=== PATIENT | female | born 1970 | race American Indian/Alaskan Native ===

== ENCOUNTER 2020-03-18 12:49 | Emergency (ER) | payer BC ==
[2020-03-18 13:14] VITALS: BP 112/64; PULSE 72
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
--- NOTE | 2020-03-18 13:51 | CR ---
Knee 3V Lt CLINICAL HISTORY: Fall FINDINGS: No acute fracture or dislocation is noted. There are no osseous lesions. There is minimal patellar spurring. Impression: No fracture
== END 2020-03-18 13:48 | disposition home or self-care (01) ==
LOC: JP.ED 12:49
DX: S70.02XA Contusion of left hip, initial encounter (principal); S80.02XA Contusion of left knee, initial encounter; I10 Essential (primary) hypertension; F41.9 Anxiety disorder, unspecified; F32.9 Major depressive disorder, single episode, unspecified; E11.9 Type 2 diabetes mellitus without complications; E66.9 Obesity, unspecified; Z68.26 Body mass index [BMI] 26.0-26.9, adult; W19.XXXA Unspecified fall, initial encounter
CPT/HCPCS: 73562-26-LT; 73562-LT; 99283

== ENCOUNTER 2021-08-30 05:15 | Inpatient (IN) | payer BC ==
[2021-08-30] MEDS ORDERED: Sodium Chloride 0.9% 10 ML Syringe FLUSH PRN ×2 (05:29→09:24)
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
[2021-08-30 06:17] LABS: CORONAVIRUS COVID-19 NAA POSITIVE (NEGATIVE)
[2021-08-30] MEDS ORDERED: Dexamethasone 4 MG/ML SDV IVPUSH ONE (06:41)
[2021-08-30] MEDS ORDERED: REMDESIVIR 200 MG in Sodium Chloride 0.9% 250 ML IV ONE ×2 (06:41→08:00)
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
[2021-08-30] MEDS ORDERED: Ondansetron 4 MG/2 ML SDV IV PRN (09:24)
[2021-08-30] MEDS ORDERED: Polyethylene Glycol 3350 Powder 17 GM Packet PO PRN (09:24)
[2021-08-30] MEDS: DULoxetine 30 MG Cap PO SCH (10:13)
[2021-08-30] MEDS: Celecoxib 200 MG Cap PO SCH ×2 (10:22→20:56)
[2021-08-30] MEDS: Enoxaparin 40 MG/0.4 ML Syringe SUBCUT SCH (10:22)
[2021-08-30] MEDS: Dexamethasone 4 MG/ML SDV IVPUSH SCH (10:22)
[2021-08-30] MEDS: Acetaminophen 325 MG Tab PO PRN (18:16)
[2021-08-30] MEDS: Acetaminophen/HYDROcodone 325-10 MG Tab PO PRN (20:59)
[2021-08-30] MEDS: Codeine/guaiFENesin 10-100 MG/5 ML Syrup 5 ML Cup PO PRN (21:01)
[2021-08-30] MEDS ORDERED: DULoxetine 30 MG Cap PO ONE (21:03)
[2021-08-31] MEDS: Acetaminophen/HYDROcodone 325-10 MG Tab PO PRN ×3 (07:44→23:36)
[2021-08-31] MEDS: Benzonatate 100 MG Cap PO PRN ×2 (07:44→23:38)
[2021-08-31] MEDS: Codeine/guaiFENesin 10-100 MG/5 ML Syrup 5 ML Cup PO PRN ×3 (07:44→18:20)
[2021-08-31] MEDS: Celecoxib 200 MG Cap PO SCH ×2 (08:01→20:20)
[2021-08-31] MEDS: Enoxaparin 40 MG/0.4 ML Syringe SUBCUT SCH (08:01)
[2021-08-31] MEDS: Dexamethasone 4 MG/ML SDV IVPUSH SCH (08:01)
[2021-08-31] MEDS: DULoxetine 30 MG Cap PO SCH (10:17)
[2021-08-31] MEDS: REMDESIVIR 100 MG in Sodium Chloride 0.9% 100 ML IV SCH (10:17)
--- NOTE | 2021-08-31 13:57 | PCM.PN ---
- General Info Date of Service: 08/31/21 Subjective Update: Ms. Porter has remained stable since admission yesterday. She continues to require supplemental oxygen at 8 L/min via high flow nasal cannula. There is been no significant worsening of respiratory status since admission. Vital signs have been stable and she has remained afebrile. She does report symptoms of shortness of breath with fairly minimal exertion. Functional Status: Reports: Urinating. Denies: Tolerating Diet, Ambulating - Review of Systems General: Reports: Weakness, Fatigue. Denies: Fever, Chills Pulmonary: Reports: Shortness of Breath, Cough. Denies: Pleuritic Chest Pain, Sputum, Hemoptysis, Wheezing Cardiovascular: Reports: Dyspnea on Exertion. Denies: Chest Pain, Palpitations, Orthopnea, PND, Edema, Lightheadedness Gastrointestinal: Reports: No Symptoms Genitourinary: Reports: No Symptoms - Patient Data Vitals - Most Recent: Last Vital Signs Temp 95.7 F L 08/31/21 11:34 Pulse 77 08/31/21 11:34 Resp 18 08/31/21 11:34 BP 118/68 08/31/21 11:34 Pulse Ox 96 08/31/21 11:34 Weight - Most Recent: 180 lb I&O - Last 24 Hours: Intake & Output 08/30/21 08/31/21 08/31/21 22:59 06:59 14:59 Intake Total 300 500 520 Balance 300 500 520 Lab Results Last 24 Hours: Laboratory Results - last 24 hr 08/31/21 08/31/21 08/31/21 Range/Units 06:01 06:01 06:01 WBC 10.1 (4.5-11.0) K/uL RBC 4.45 (3.30-5.50) M/uL Hgb 12.7 (12.0-15.0) g/dL Hct 38.5 (36.0-48.0) % MCV 87 (80-98) fL MCH 29 (27-31) pg MCHC 33 (32-36) % Plt Count 180 (150-400) K/uL Add Manual Diff Yes Neutrophils % (Manual) 87 H (36-66) % Band Neutrophils % 2 L (5-11) % Lymphocytes % (Manual) 5 L (24-44) % Monocytes % (Manual) 6 (2-6) % D-Dimer, Quantitative 996.03 H (0.0-500.0) ng/mL Sodium 142 (140-148) mmol/L Potassium 4.7 (3.6-5.2) mmol/L Chloride 105 (100-108) mmol/L Carbon Dioxide 30 (21-32) mmol/L Anion Gap 6.8 (5.0-14.0) mmol/L BUN 11 (7-18) mg/dL Creatinine 0.6 (0.6-1.0) mg/dL Est Cr Clr Drug Dosing 106.66 mL/min Estimated GFR (MDRD) > 60 (>60) Glucose 197 H (74-106) mg/dL Calcium 8.2 L (8.5-10.1) mg/dL Total Bilirubin 0.3 (0.2-1.0) mg/dL AST 64 H (15-37) U/L ALT 68 (12-78) U/L Alkaline Phosphatase 133 H (46-116) U/L C-Reactive Protein 5.91 H (0.0-0.3) mg/dL Total Protein 6.5 (6.4-8.2) g/dL Albumin 2.6 L (3.4-5.0) g/dL Globulin 3.9 H (2.3-3.5) g/dL Albumin/Globulin Ratio 0.7 L (1.2-2.2) Med Orders - Current: Current Medications Acetaminophen (Acetaminophen 325 Mg Tab) 650 mg PO Q4H PRN PRN Reason: Pain (Mild 1-3)/fever Last Admin: 08/30/21 18:16 Dose: 650 mg Documented by: Hydrocodone Bitart/Acetaminophen (Acetaminophen/Hydrocodone 325-10 Mg Tab) 1 tab PO TID PRN PRN Reason: Pain Last Admin: 08/31/21 07:44 Dose: 1 tab Documented by: Benzonatate (Benzonatate 100 Mg Cap) 100 mg PO TID PRN PRN Reason: Cough Last Admin: 08/31/21 07:44 Dose: 100 mg Documented by: Celecoxib (Celecoxib 200 Mg Cap) 200 mg PO BID DEBBIE Last Admin: 08/31/21 08:01 Dose: 200 mg Documented by: Dexamethasone (Dexamethasone 4 Mg/Ml Sdv) 4 mg IVPUSH Q24H DEBBIE Last Admin: 08/31/21 08:01 Dose: 4 mg Documented by: Duloxetine HCl (Duloxetine 30 Mg Cap) 30 mg PO DAILY [facility] Last Admin: 08/31/21 10:17 Dose: 30 mg Documented by: Enoxaparin Sodium (Enoxaparin 40 Mg/0.4 Ml Syringe) 40 mg SUBCUT DAILY [facility] Last Admin: 08/31/21 08:01 Dose: 40 mg Documented by: Guaifenesin/Codeine Phosphate (Codeine/Guaifenesin 10-100 Mg/5 Ml Syrup 5 Ml Cup) 10 ml PO Q6H PRN PRN Reason: Cough Last Admin: 08/31/21 13:27 Dose: 10 ml Documented by: Remdesivir 100 mg/ Sodium (Chloride) 100 mls @ 100 mls/hr IV Q24H [facility] Stop: 09/03/21 09:59 Last Admin: 08/31/21 10:17 Dose: 100 mls/hr Documented by: Ondansetron HCl (Ondansetron 4 Mg/2 Ml Sdv) 4 mg IV Q4H PRN PRN Reason: Nausea/Vomiting Polyethylene Glycol (Polyethylene Glycol 3350 Powder 17 Gm Packet) 17 gm PO DAILY PRN PRN Reason: Constipation Sodium Chloride (Sodium Chloride 0.9% 10 Ml Syringe) 10 ml FLUSH ASDIRECTED PRN PRN Reason: Keep Vein Open Discontinued Medications Dexamethasone (Dexamethasone 4 Mg/Ml Sdv) 6 mg IVPUSH ONETIME ONE Stop: 08/30/21 06:42 Last Admin: 08/30/21 07:43 Dose: 6 mg Documented by: Duloxetine HCl (Duloxetine 30 Mg Cap) 60 mg PO ONETIME ONE Stop: 08/30/21 21:04 Last Admin: 08/30/21 21:33 Dose: 60 mg Documented by: Remdesivir 200 mg/ Sodium (Chloride) 250 mls @ 250 mls/hr IV ONETIME ONE Stop: 08/30/21 08:59 Last Admin: 08/30/21 07:43 Dose: 250 mls/hr Documented by: Sodium Chloride (Sodium Chloride 0.9% 10 Ml Syringe) 10 ml FLUSH ASDIRECTED PRN PRN Reason: Keep Vein Open Last Admin: 08/30/21 05:41 Dose: 10 ml Documented by: - Exam Quality Assessment: Supplemental Oxygen, DVT Prophylaxis General: Alert, Oriented, Cooperative, Mild Distress Lungs: Normal Respiratory Effort, Crackles. No: Rales, Rhonchi, Wheezing Cardiovascular: Regular Rate, Regular Rhythm, No Murmurs GI/Abdominal Exam: Soft, Non-Tender, No Organomegaly, No Distention Extremities: Non-Tender, No Pedal Edema - Patient Data Lab Results Last 24 hrs: Laboratory Results - last 24 hr 08/31/21 08/31/21 08/31/21 Range/Units 06:01 06:01 06:01 WBC 10.1 (4.5-11.0) K/uL RBC 4.45 (3.30-5.50) M/uL Hgb 12.7 (12.0-15.0) g/dL Hct 38.5 (36.0-48.0) % MCV 87 (80-98) fL MCH 29 (27-31) pg MCHC 33 (32-36) % Plt Count 180 (150-400) K/uL Add Manual Diff Yes Neutrophils % (Manual) 87 H (36-66) % Band Neutrophils % 2 L (5-11) % Lymphocytes % (Manual) 5 L (24-44) % Monocytes % (Manual) 6 (2-6) % D-Dimer, Quantitative 996.03 H (0.0-500.0) ng/mL Sodium 142 (140-148) mmol/L Potassium 4.7 (3.6-5.2) mmol/L Chloride 105 (100-108) mmol/L Carbon Dioxide 30 (21-32) mmol/L Anion Gap 6.8 (5.0-14.0) mmol/L BUN 11 (7-18) mg/dL Creatinine 0.6 (0.6-1.0) mg/dL Est Cr Clr Drug Dosing 106.66 mL/min Estimated GFR (MDRD) > 60 (>60) Glucose 197 H (74-106) mg/dL Calcium 8.2 L (8.5-10.1) mg/dL Total Bilirubin 0.3 (0.2-1.0) mg/dL AST 64 H (15-37) U/L ALT 68 (12-78) U/L Alkaline Phosphatase 133 H (46-116) U/L C-Reactive Protein 5.91 H (0.0-0.3) mg/dL Total Protein 6.5 (6.4-8.2) g/dL Albumin 2.6 L (3.4-5.0) g/dL Globulin 3.9 H (2.3-3.5) g/dL Albumin/Globulin Ratio 0.7 L (1.2-2.2) Result Diagrams: 08/31/21 06:01 08/31/21 06:01 Sepsis Event Note - Evaluation Sepsis Screening Result: No Definite Risk - Focused Exam Vital Signs: Vital Signs Temp Pulse Resp BP Pulse Ox 08/31/21 11:34 95.7 F L 77 18 118/68 96 08/31/21 07:50 96.5 F L 81 18 135/71 93 L 08/31/21 03:00 97.8 F 91 16 125/69 95 - Problem List Review Problem List Initiated/Reviewed/Updated: Yes - My Orders Last 24 Hours: My Active Orders 08/31/21 09:00 Remdesivir 100 mg Sodium Chloride 0.9% [Normal Saline] 100 ml IV Q24H - Plan Plan:: ASSESSMENT AND PLAN COVID-19 INFECTION WITH BILATERAL PNEUMONIA-stable since admission with no significant decline or change in respiratory status -Limit IV fluids -Prone positioning if possible -Remdesivir 200 mg IV, then 100 mg IV daily for 4 days, today is day 2 of 5 -Dexamethasone 6 mg IV daily, today is day 2 -Supplemental oxygen as needed -Consider high flow humidified oxygen if she requires increased levels of supplemental support ACUTE HYPOXIC RESPIRATORY FAILURE-secondary to COVID-19 infection -Management as above MAINTENANCE ISSUES -DVT prophylaxis; Lovenox 40 mg subcu daily -GI prophylaxis; not indicated -[place] catheter; not indicated -Nutrition; regular diet -Nicotine dependence; not required CODE STATUS-FULL CODE ADMISSION STATUS-patient will be admitted to inpatient status, expect at least a 2 night hospital stay for evaluation and management of problems as outlined above. At the time of this admission I do not reasonably expected evaluation and management of this problem will require more than a 96 hour hospital stay. DISPOSITION-anticipate discharge to home after the hospital stay.
[2021-09-01] MEDS: Codeine/guaiFENesin 10-100 MG/5 ML Syrup 5 ML Cup PO PRN ×3 (00:22→20:30)
[2021-09-01] MEDS: Acetaminophen/HYDROcodone 325-10 MG Tab PO PRN ×3 (07:24→23:24)
[2021-09-01] MEDS: DULoxetine 30 MG Cap PO SCH (10:05)
[2021-09-01] MEDS: Dexamethasone 4 MG/ML SDV IVPUSH SCH (10:05)
[2021-09-01] MEDS: Celecoxib 200 MG Cap PO SCH ×2 (10:05→20:31)
[2021-09-01] MEDS: Enoxaparin 40 MG/0.4 ML Syringe SUBCUT SCH (10:06)
[2021-09-01] MEDS: REMDESIVIR 100 MG in Sodium Chloride 0.9% 100 ML IV SCH (10:26)
--- NOTE | 2021-09-01 12:34 | PCM.PN ---
- General Info Date of Service: 09/01/21 Subjective Update: Ms. Porter stable over the last 24 hours. Level of supplemental oxygen requirement is unchanged since yesterday. She continues to feel short of breath with fairly minimal exertion and also has had ongoing difficulty with cough. Functional Status: Reports: Urinating - Review of Systems General: Reports: Weakness, Fatigue. Denies: Fever, Chills Pulmonary: Reports: Shortness of Breath, Cough. Denies: Pleuritic Chest Pain, Sputum, Hemoptysis, Wheezing Cardiovascular: Reports: Dyspnea on Exertion. Denies: Chest Pain, Palpitations, Orthopnea, PND, Edema, Lightheadedness Gastrointestinal: Reports: No Symptoms Genitourinary: Reports: No Symptoms - Patient Data Vitals - Most Recent: Last Vital Signs Temp 95.9 F L 09/01/21 10:10 Pulse 82 09/01/21 10:10 Resp 18 09/01/21 10:10 BP 132/76 09/01/21 10:10 Pulse Ox 96 09/01/21 10:48 Weight - Most Recent: 191 lb 3.2 oz I&O - Last 24 Hours: Intake & Output 08/31/21 09/01/21 09/01/21 22:59 06:59 14:59 Intake Total 600 240 330 Balance 600 240 330 Med Orders - Current: Current Medications Acetaminophen (Acetaminophen 325 Mg Tab) 650 mg PO Q4H PRN PRN Reason: Pain (Mild 1-3)/fever Last Admin: 08/30/21 18:16 Dose: 650 mg Documented by: Hydrocodone Bitart/Acetaminophen (Acetaminophen/Hydrocodone 325-10 Mg Tab) 1 tab PO TID PRN PRN Reason: Pain Last Admin: 09/01/21 07:24 Dose: 1 tab Documented by: Benzonatate (Benzonatate 100 Mg Cap) 100 mg PO TID PRN PRN Reason: Cough Last Admin: 08/31/21 23:38 Dose: 100 mg Documented by: Celecoxib (Celecoxib 200 Mg Cap) 200 mg PO BID [facility] Last Admin: 09/01/21 10:05 Dose: 200 mg Documented by: Dexamethasone (Dexamethasone 4 Mg/Ml Sdv) 4 mg IVPUSH Q24H [facility] Last Admin: 09/01/21 10:05 Dose: 4 mg Documented by: Duloxetine HCl (Duloxetine 30 Mg Cap) 30 mg PO DAILY [facility] Last Admin: 09/01/21 10:05 Dose: 30 mg Documented by: Enoxaparin Sodium (Enoxaparin 40 Mg/0.4 Ml Syringe) 40 mg SUBCUT DAILY [facility] Last Admin: 09/01/21 10:06 Dose: 40 mg Documented by: Guaifenesin/Codeine Phosphate (Codeine/Guaifenesin 10-100 Mg/5 Ml Syrup 5 Ml Cup) 10 ml PO Q6H PRN PRN Reason: Cough Last Admin: 09/01/21 07:23 Dose: 10 ml Documented by: Remdesivir 100 mg/ Sodium (Chloride) 100 mls @ 100 mls/hr IV Q24H [facility] Stop: 09/03/21 09:59 Last Admin: 09/01/21 10:26 Dose: 100 mls/hr Documented by: Ondansetron HCl (Ondansetron 4 Mg/2 Ml Sdv) 4 mg IV Q4H PRN PRN Reason: Nausea/Vomiting Polyethylene Glycol (Polyethylene Glycol 3350 Powder 17 Gm Packet) 17 gm PO DAILY PRN PRN Reason: Constipation Sodium Chloride (Sodium Chloride 0.9% 10 Ml Syringe) 10 ml FLUSH ASDIRECTED PRN PRN Reason: Keep Vein Open Discontinued Medications Dexamethasone (Dexamethasone 4 Mg/Ml Sdv) 6 mg IVPUSH ONETIME ONE Stop: 08/30/21 06:42 Last Admin: 08/30/21 07:43 Dose: 6 mg Documented by: Duloxetine HCl (Duloxetine 30 Mg Cap) 60 mg PO ONETIME ONE Stop: 08/30/21 21:04 Last Admin: 08/30/21 21:33 Dose: 60 mg Documented by: Remdesivir 200 mg/ Sodium (Chloride) 250 mls @ 250 mls/hr IV ONETIME ONE Stop: 08/30/21 08:59 Last Admin: 08/30/21 07:43 Dose: 250 mls/hr Documented by: Sodium Chloride (Sodium Chloride 0.9% 10 Ml Syringe) 10 ml FLUSH ASDIRECTED PRN PRN Reason: Keep Vein Open Last Admin: 08/30/21 05:41 Dose: 10 ml Documented by: - Exam Quality Assessment: Supplemental Oxygen, DVT Prophylaxis General: Alert, Oriented, Cooperative, Moderate Distress Lungs: Crackles. No: Rales, Rhonchi, Wheezing Cardiovascular: Regular Rate, Regular Rhythm, No Murmurs GI/Abdominal Exam: Soft, Non-Tender, No Organomegaly, No Distention Extremities: Non-Tender, No Pedal Edema - Patient Data Result Diagrams: 08/31/21 06:01 08/31/21 06:01 Sepsis Event Note - Evaluation Sepsis Screening Result: No Definite Risk - Focused Exam Vital Signs: Vital Signs Temp Temp Pulse Resp BP Pulse Ox Pulse Ox 09/01/21 10:48 96 09/01/21 10:10 95.9 F L 82 18 132/76 94 L 09/01/21 07:31 96 09/01/21 07:26 96.4 F L 74 18 127/71 96 09/01/21 04:06 99 09/01/21 03:00 97.4 F 68 16 142/79 H 98 - Problem List Review Problem List Initiated/Reviewed/Updated: Yes - My Orders Last 24 Hours: My Active Orders 09/02/21 05:00 CBC WITH AUTO DIFF [HEME] Timed COMPREHENSIVE METABOLIC PN,CMP [CHEM] Timed 09/02/21 05:11 CRP [C-REACTIVE PROTEIN] [CHEM] AM D Dimer [D-DIMER QUANTITATIVE] [COAG] AM - Plan Plan:: ASSESSMENT AND PLAN COVID-19 INFECTION WITH BILATERAL PNEUMONIA-stable since admission with no significant decline or change in respiratory status -Limit IV fluids -Prone positioning if possible -Remdesivir 200 mg IV, then 100 mg IV daily for 4 days, today is day 3 of 5 -Dexamethasone 6 mg IV daily, today is day 3 -Supplemental oxygen as needed -Consider high flow humidified oxygen if she requires increased levels of supplemental support ACUTE HYPOXIC RESPIRATORY FAILURE-secondary to COVID-19 infection -Management as above MAINTENANCE ISSUES -DVT prophylaxis; Lovenox 40 mg subcu daily -GI prophylaxis; not indicated -[place] catheter; not indicated -Nutrition; regular diet -Nicotine dependence; not required CODE STATUS-FULL CODE ADMISSION STATUS-patient will be admitted to inpatient status, expect at least a 2 night hospital stay for evaluation and management of problems as outlined above. At the time of this admission I do not reasonably expected evaluation and management of this problem will require more than a 96 hour hospital stay. DISPOSITION-anticipate discharge to home after the hospital stay.
[2021-09-02] MEDS: Codeine/guaiFENesin 10-100 MG/5 ML Syrup 5 ML Cup PO PRN ×3 (05:47→21:13)
[2021-09-02] MEDS: Acetaminophen 325 MG Tab PO PRN (05:51)
[2021-09-02] MEDS: Benzonatate 100 MG Cap PO PRN ×3 (05:51→19:28)
[2021-09-02] MEDS: Acetaminophen/HYDROcodone 325-10 MG Tab PO PRN ×5 (07:42→23:20)
[2021-09-02] MEDS: Enoxaparin 40 MG/0.4 ML Syringe SUBCUT SCH (08:39)
[2021-09-02] MEDS: REMDESIVIR 100 MG in Sodium Chloride 0.9% 100 ML IV SCH (08:39)
[2021-09-02] MEDS: Celecoxib 200 MG Cap PO SCH ×2 (08:39→21:13)
[2021-09-02] MEDS: Dexamethasone 4 MG/ML SDV IVPUSH SCH (08:39)
[2021-09-02] MEDS: DULoxetine 30 MG Cap PO SCH (08:39)
--- NOTE | 2021-09-02 11:16 | PCM.PN ---
- General Info Date of Service: 09/02/21 Subjective Update: Ms. Porter continues to require supplemental oxygen at 8 L/min via high flow nasal cannula. Continues to experience significant cough and desaturation with activity. She has chronic low back pain and this seems to be worse as she has had to be in bed most of the time. Functional Status: Reports: Urinating. Denies: Tolerating Diet, Ambulating - Review of Systems General: Reports: Weakness, Fatigue. Denies: Fever, Chills Pulmonary: Reports: Shortness of Breath, Cough. Denies: Pleuritic Chest Pain, Sputum, Hemoptysis, Wheezing Cardiovascular: Reports: Dyspnea on Exertion. Denies: Chest Pain, Palpitations, Orthopnea, PND, Edema, Lightheadedness Gastrointestinal: Reports: No Symptoms Genitourinary: Reports: No Symptoms - Patient Data Vitals - Most Recent: Last Vital Signs Temp 95.3 F L 09/02/21 07:33 Pulse 86 09/02/21 07:33 Resp 18 09/02/21 07:33 BP 132/79 09/02/21 07:33 Pulse Ox 96 09/02/21 08:37 Weight - Most Recent: 191 lb 3.2 oz I&O - Last 24 Hours: Intake & Output 09/01/21 09/02/21 09/02/21 22:59 06:59 14:59 Intake Total 860 600 120 Balance 860 600 120 Lab Results Last 24 Hours: Laboratory Results - last 24 hr 09/02/21 09/02/21 09/02/21 Range/Units 04:30 04:30 04:30 WBC 12.3 H (4.5-11.0) K/uL RBC 4.54 (3.30-5.50) M/uL Hgb 13.0 (12.0-15.0) g/dL Hct 39.8 (36.0-48.0) % MCV 88 (80-98) fL MCH 29 (27-31) pg MCHC 33 (32-36) % Plt Count 236 (150-400) K/uL Add Manual Diff Yes Neutrophils % (Manual) 79 H (36-66) % Band Neutrophils % 3 L (5-11) % Lymphocytes % (Manual) 9 L (24-44) % Monocytes % (Manual) 8 H (2-6) % Eosinophils % (Manual) 1 L (2-4) % D-Dimer, Quantitative 659.05 H (0.0-500.0) ng/mL Sodium 143 (140-148) mmol/L Potassium 4.4 (3.6-5.2) mmol/L Chloride 103 (100-108) mmol/L Carbon Dioxide 32 (21-32) mmol/L Anion Gap 7.8 (5.0-14.0) mmol/L BUN 14 (7-18) mg/dL Creatinine 0.7 (0.6-1.0) mg/dL Est Cr Clr Drug Dosing 91.42 mL/min Estimated GFR (MDRD) > 60 (>60) Glucose 139 H (74-106) mg/dL Calcium 8.2 L (8.5-10.1) mg/dL Total Bilirubin 0.3 (0.2-1.0) mg/dL AST 67 H (15-37) U/L ALT 83 H (12-78) U/L Alkaline Phosphatase 132 H (46-116) U/L C-Reactive Protein (0.0-0.3) mg/dL Total Protein 6.5 (6.4-8.2) g/dL Albumin 2.7 L (3.4-5.0) g/dL Globulin 3.8 H (2.3-3.5) g/dL Albumin/Globulin Ratio 0.7 L (1.2-2.2) 09/02/21 Range/Units 04:30 WBC (4.5-11.0) K/uL RBC (3.30-5.50) M/uL Hgb (12.0-15.0) g/dL Hct (36.0-48.0) % MCV (80-98) fL MCH (27-31) pg MCHC (32-36) % Plt Count (150-400) K/uL Add Manual Diff Neutrophils % (Manual) (36-66) % Band Neutrophils % (5-11) % Lymphocytes % (Manual) (24-44) % Monocytes % (Manual) (2-6) % Eosinophils % (Manual) (2-4) % D-Dimer, Quantitative (0.0-500.0) ng/mL Sodium (140-148) mmol/L Potassium (3.6-5.2) mmol/L Chloride (100-108) mmol/L Carbon Dioxide (21-32) mmol/L Anion Gap (5.0-14.0) mmol/L BUN (7-18) mg/dL Creatinine (0.6-1.0) mg/dL Est Cr Clr Drug Dosing mL/min Estimated GFR (MDRD) (>60) Glucose (74-106) mg/dL Calcium (8.5-10.1) mg/dL Total Bilirubin (0.2-1.0) mg/dL AST (15-37) U/L ALT (12-78) U/L Alkaline Phosphatase (46-116) U/L C-Reactive Protein 0.64 H (0.0-0.3) mg/dL Total Protein (6.4-8.2) g/dL Albumin (3.4-5.0) g/dL Globulin (2.3-3.5) g/dL Albumin/Globulin Ratio (1.2-2.2) Med Orders - Current: Current Medications Acetaminophen (Acetaminophen 325 Mg Tab) 650 mg PO Q4H PRN PRN Reason: Pain (Mild 1-3)/fever Last Admin: 09/02/21 05:51 Dose: 650 mg Documented by: Hydrocodone Bitart/Acetaminophen (Acetaminophen/Hydrocodone 325-10 Mg Tab) 1 tab PO Q4H PRN PRN Reason: Pain Benzonatate (Benzonatate 100 Mg Cap) 100 mg PO TID PRN PRN Reason: Cough Last Admin: 09/02/21 05:51 Dose: 100 mg Documented by: Celecoxib (Celecoxib 200 Mg Cap) 200 mg PO BID [facility] Last Admin: 09/02/21 08:39 Dose: 200 mg Documented by: Dexamethasone (Dexamethasone 4 Mg/Ml Sdv) 4 mg IVPUSH Q24H [facility] Last Admin: 09/02/21 08:39 Dose: 4 mg Documented by: Duloxetine HCl (Duloxetine 30 Mg Cap) 30 mg PO DAILY [facility] Last Admin: 09/02/21 08:39 Dose: 30 mg Documented by: Enoxaparin Sodium (Enoxaparin 40 Mg/0.4 Ml Syringe) 40 mg SUBCUT DAILY [facility] Last Admin: 09/02/21 08:39 Dose: 40 mg Documented by: Guaifenesin/Codeine Phosphate (Codeine/Guaifenesin 10-100 Mg/5 Ml Syrup 5 Ml Cup) 10 ml PO Q6H PRN PRN Reason: Cough Last Admin: 09/02/21 05:47 Dose: 10 ml Documented by: Remdesivir 100 mg/ Sodium (Chloride) 100 mls @ 100 mls/hr IV Q24H [facility] Stop: 09/03/21 09:59 Last Admin: 09/02/21 08:39 Dose: 100 mls/hr Documented by: Ondansetron HCl (Ondansetron 4 Mg/2 Ml Sdv) 4 mg IV Q4H PRN PRN Reason: Nausea/Vomiting Carisoprodol 350mg (Tab (Ptom)) 1 each PO BEDTIME PRN PRN Reason: MUSCLE SPASM Polyethylene Glycol (Polyethylene Glycol 3350 Powder 17 Gm Packet) 17 gm PO DAILY PRN PRN Reason: Constipation Sodium Chloride (Sodium Chloride 0.9% 10 Ml Syringe) 10 ml FLUSH ASDIRECTED PRN PRN Reason: Keep Vein Open Discontinued Medications Hydrocodone Bitart/Acetaminophen (Acetaminophen/Hydrocodone 325-10 Mg Tab) 1 tab PO TID PRN PRN Reason: Pain Last Admin: 09/02/21 07:42 Dose: 1 tab Documented by: Dexamethasone (Dexamethasone 4 Mg/Ml Sdv) 6 mg IVPUSH ONETIME ONE Stop: 08/30/21 06:42 Last Admin: 08/30/21 07:43 Dose: 6 mg Documented by: Duloxetine HCl (Duloxetine 30 Mg Cap) 60 mg PO ONETIME ONE Stop: 08/30/21 21:04 Last Admin: 08/30/21 21:33 Dose: 60 mg Documented by: Remdesivir 200 mg/ Sodium (Chloride) 250 mls @ 250 mls/hr IV ONETIME ONE Stop: 08/30/21 08:59 Last Admin: 08/30/21 07:43 Dose: 250 mls/hr Documented by: Sodium Chloride (Sodium Chloride 0.9% 10 Ml Syringe) 10 ml FLUSH ASDIRECTED PRN PRN Reason: Keep Vein Open Last Admin: 08/30/21 05:41 Dose: 10 ml Documented by: - Exam Quality Assessment: Supplemental Oxygen, DVT Prophylaxis General: Alert, Oriented, Cooperative, Moderate Distress Lungs: Crackles. No: Rales, Rhonchi, Wheezing Cardiovascular: Regular Rate, Regular Rhythm, No Murmurs GI/Abdominal Exam: Soft, Non-Tender, No Organomegaly, No Distention Extremities: Non-Tender, No Pedal Edema - Patient Data Lab Results Last 24 hrs: Laboratory Results - last 24 hr 09/02/21 09/02/21 09/02/21 Range/Units 04:30 04:30 04:30 WBC 12.3 H (4.5-11.0) K/uL RBC 4.54 (3.30-5.50) M/uL Hgb 13.0 (12.0-15.0) g/dL Hct 39.8 (36.0-48.0) % MCV 88 (80-98) fL MCH 29 (27-31) pg MCHC 33 (32-36) % Plt Count 236 (150-400) K/uL Add Manual Diff Yes Neutrophils % (Manual) 79 H (36-66) % Band Neutrophils % 3 L (5-11) % Lymphocytes % (Manual) 9 L (24-44) % Monocytes % (Manual) 8 H (2-6) % Eosinophils % (Manual) 1 L (2-4) % D-Dimer, Quantitative 659.05 H (0.0-500.0) ng/mL Sodium 143 (140-148) mmol/L Potassium 4.4 (3.6-5.2) mmol/L Chloride 103 (100-108) mmol/L Carbon Dioxide 32 (21-32) mmol/L Anion Gap 7.8 (5.0-14.0) mmol/L BUN 14 (7-18) mg/dL Creatinine 0.7 (0.6-1.0) mg/dL Est Cr Clr Drug Dosing 91.42 mL/min Estimated GFR (MDRD) > 60 (>60) Glucose 139 H (74-106) mg/dL Calcium 8.2 L (8.5-10.1) mg/dL Total Bilirubin 0.3 (0.2-1.0) mg/dL AST 67 H (15-37) U/L ALT 83 H (12-78) U/L Alkaline Phosphatase 132 H (46-116) U/L C-Reactive Protein (0.0-0.3) mg/dL Total Protein 6.5 (6.4-8.2) g/dL Albumin 2.7 L (3.4-5.0) g/dL Globulin 3.8 H (2.3-3.5) g/dL Albumin/Globulin Ratio 0.7 L (1.2-2.2) 09/02/21 Range/Units 04:30 WBC (4.5-11.0) K/uL RBC (3.30-5.50) M/uL Hgb (12.0-15.0) g/dL Hct (36.0-48.0) % MCV (80-98) fL MCH (27-31) pg MCHC (32-36) % Plt Count (150-400) K/uL Add Manual Diff Neutrophils % (Manual) (36-66) % Band Neutrophils % (5-11) % Lymphocytes % (Manual) (24-44) % Monocytes % (Manual) (2-6) % Eosinophils % (Manual) (2-4) % D-Dimer, Quantitative (0.0-500.0) ng/mL Sodium (140-148) mmol/L Potassium (3.6-5.2) mmol/L Chloride (100-108) mmol/L Carbon Dioxide (21-32) mmol/L Anion Gap (5.0-14.0) mmol/L BUN (7-18) mg/dL Creatinine (0.6-1.0) mg/dL Est Cr Clr Drug Dosing mL/min Estimated GFR (MDRD) (>60) Glucose (74-106) mg/dL Calcium (8.5-10.1) mg/dL Total Bilirubin (0.2-1.0) mg/dL AST (15-37) U/L ALT (12-78) U/L Alkaline Phosphatase (46-116) U/L C-Reactive Protein 0.64 H (0.0-0.3) mg/dL Total Protein (6.4-8.2) g/dL Albumin (3.4-5.0) g/dL Globulin (2.3-3.5) g/dL Albumin/Globulin Ratio (1.2-2.2) Result Diagrams: 09/02/21 04:30 09/02/21 04:30 Sepsis Event Note - Evaluation Sepsis Screening Result: Sepsis Risk - Focused Exam Vital Signs: Vital Signs Temp Pulse Resp BP Pulse Ox Pulse Ox 09/02/21 08:37 96 09/02/21 07:33 95.3 F L 86 18 132/79 90 L 09/02/21 06:46 94 L 09/02/21 05:10 95 09/02/21 03:00 97.7 F 72 16 157/87 H 97 09/01/21 23:25 96.8 F L 69 20 156/81 H 94 L - Problem List Review Problem List Initiated/Reviewed/Updated: Yes - My Orders Last 24 Hours: My Active Orders 09/01/21 20:00 Patient's Own Medication [Ptom] 1 each PO BEDTIME PRN 09/02/21 11:13 Acetaminophen/HYDROcodone [[place] 325-10 MG] 1 tab PO Q4H PRN - Plan Plan:: ASSESSMENT AND PLAN COVID-19 INFECTION WITH BILATERAL PNEUMONIA-stable since admission with no significant decline or change in respiratory status. Continues to require 8 L /min via high flow nasal cannula -Limit IV fluids -Prone positioning if possible -Remdesivir 200 mg IV, then 100 mg IV daily for 4 days, today is day 4 of 5 -Dexamethasone 6 mg IV daily, today is day 4 -Supplemental oxygen as needed -Consider high flow humidified oxygen if she requires increased levels of supplemental support ACUTE HYPOXIC RESPIRATORY FAILURE-secondary to COVID-19 infection -Management as above CHRONIC LOW BACK PAIN-symptoms increased since admission, likely secondary to immobility related to hypoxia -Increase hydrocodone to every 4 hours as needed MAINTENANCE ISSUES -DVT prophylaxis; Lovenox 40 mg subcu daily -GI prophylaxis; not indicated -[place] catheter; not indicated -Nutrition; regular diet -Nicotine dependence; not required CODE STATUS-FULL CODE ADMISSION STATUS-patient will be admitted to inpatient status, expect at least a 2 night hospital stay for evaluation and management of problems as outlined above. At the time of this admission I do not reasonably expected evaluation and management of this problem will require more than a 96 hour hospital stay. DISPOSITION-anticipate discharge to home after the hospital stay.
[2021-09-02] MEDS: Trolamine Salicylate/Aloe Vera 10% Crm 85 GM Tube TOP PRN ×2 (15:54→19:38)
[2021-09-02] MEDS: CARISOPRODOL 350 MG PO PRN (21:13)
[2021-09-03] MEDS: Codeine/guaiFENesin 10-100 MG/5 ML Syrup 5 ML Cup PO PRN ×4 (02:49→22:05)
[2021-09-03] MEDS: Acetaminophen/HYDROcodone 325-10 MG Tab PO PRN ×6 (03:50→23:40)
[2021-09-03] MEDS: Benzonatate 100 MG Cap PO PRN ×2 (07:27→23:41)
[2021-09-03] MEDS: Enoxaparin 40 MG/0.4 ML Syringe SUBCUT SCH (08:12)
[2021-09-03] MEDS: REMDESIVIR 100 MG in Sodium Chloride 0.9% 100 ML IV SCH (08:12)
[2021-09-03] MEDS: DULoxetine 30 MG Cap PO SCH (08:13)
[2021-09-03] MEDS: Celecoxib 200 MG Cap PO SCH ×2 (08:13→22:05)
[2021-09-03] MEDS: Dexamethasone 4 MG/ML SDV IVPUSH SCH (08:13)
--- NOTE | 2021-09-03 14:05 | PCM.PN ---
- General Info Date of Service: 09/03/21 Subjective Update: Ms. Porter has shown modest improvement over the last 24 hours, now on 7 L/min via high flow nasal cannula. She was able to get in for shower this morning but did experience significant shortness of breath and required relatively long period of time to recover. Functional Status: Reports: Ambulating, Urinating. Denies: Tolerating Diet - Review of Systems General: Reports: Weakness, Fatigue. Denies: Fever, Chills Pulmonary: Reports: Shortness of Breath, Cough. Denies: Pleuritic Chest Pain, Sputum, Hemoptysis, Wheezing Cardiovascular: Reports: Dyspnea on Exertion. Denies: Chest Pain, Palpitations, Orthopnea, PND, Edema, Lightheadedness Gastrointestinal: Reports: No Symptoms Genitourinary: Reports: No Symptoms - Patient Data Vitals - Most Recent: Last Vital Signs Temp 95.8 F L 09/03/21 10:51 Pulse 78 09/03/21 10:51 Resp 20 09/03/21 10:51 BP 137/76 09/03/21 10:51 Pulse Ox 95 09/03/21 10:51 Weight - Most Recent: 191 lb 3.2 oz I&O - Last 24 Hours: Intake & Output 09/02/21 09/03/21 09/03/21 22:59 06:59 14:59 Intake Total 836 211 1414 Balance 671 125 2381 Med Orders - Current: Current Medications Acetaminophen (Acetaminophen 325 Mg Tab) 650 mg PO Q4H PRN PRN Reason: Pain (Mild 1-3)/fever Last Admin: 09/02/21 05:51 Dose: 650 mg Documented by: Hydrocodone Bitart/Acetaminophen (Acetaminophen/Hydrocodone 325-10 Mg Tab) 1 tab PO Q4H PRN PRN Reason: Pain Last Admin: 09/03/21 11:29 Dose: 1 tab Documented by: Benzonatate (Benzonatate 100 Mg Cap) 100 mg PO TID PRN PRN Reason: Cough Last Admin: 09/03/21 07:27 Dose: 100 mg Documented by: Celecoxib (Celecoxib 200 Mg Cap) 200 mg PO BID [facility] Last Admin: 09/03/21 08:13 Dose: 200 mg Documented by: Dexamethasone (Dexamethasone 4 Mg/Ml Sdv) 4 mg IVPUSH Q24H [facility] Last Admin: 09/03/21 08:13 Dose: 4 mg Documented by: Duloxetine HCl (Duloxetine 30 Mg Cap) 30 mg PO DAILY [facility] Last Admin: 09/03/21 08:13 Dose: 30 mg Documented by: Enoxaparin Sodium (Enoxaparin 40 Mg/0.4 Ml Syringe) 40 mg SUBCUT DAILY [facility] Last Admin: 09/03/21 08:12 Dose: 40 mg Documented by: Guaifenesin/Codeine Phosphate (Codeine/Guaifenesin 10-100 Mg/5 Ml Syrup 5 Ml Cup) 10 ml PO Q6H PRN PRN Reason: Cough Last Admin: 09/03/21 09:12 Dose: 10 ml Documented by: Ondansetron HCl (Ondansetron 4 Mg/2 Ml Sdv) 4 mg IV Q4H PRN PRN Reason: Nausea/Vomiting Carisoprodol 350mg (Tab (Ptom)) 1 each PO BEDTIME PRN PRN Reason: MUSCLE SPASM Last Admin: 09/02/21 21:13 Dose: 1 each Documented by: Polyethylene Glycol (Polyethylene Glycol 3350 Powder 17 Gm Packet) 17 gm PO DA [facility] PRN PRN Reason: Constipation Sodium Chloride (Sodium Chloride 0.9% 10 Ml Syringe) 10 ml FLUSH ASDIRECTED PRN PRN Reason: Keep Vein Open Trolamine Salicylate (Trolamine Salicylate/Aloe Vera 10% Crm 85 Gm Tube) 0 gm TOP Q1H PRN PRN Reason: Pain Last Admin: 09/02/21 19:38 Dose: 1 applic Documented by: Discontinued Medications Hydrocodone Bitart/Acetaminophen (Acetaminophen/Hydrocodone 325-10 Mg Tab) 1 tab PO TID PRN PRN Reason: Pain Last Admin: 09/02/21 07:42 Dose: 1 tab Documented by: Dexamethasone (Dexamethasone 4 Mg/Ml Sdv) 6 mg IVPUSH ONETIME ONE Stop: 08/30/21 06:42 Last Admin: 08/30/21 07:43 Dose: 6 mg Documented by: Duloxetine HCl (Duloxetine 30 Mg Cap) 60 mg PO ONETIME ONE Stop: 08/30/21 21:04 Last Admin: 08/30/21 21:33 Dose: 60 mg Documented by: Remdesivir 200 mg/ Sodium (Chloride) 250 mls @ 250 mls/hr IV ONETIME ONE Stop: 08/30/21 08:59 Last Admin: 08/30/21 07:43 Dose: 250 mls/hr Documented by: Remdesivir 100 mg/ Sodium (Chloride) 100 mls @ 100 mls/hr IV Q24H [facility] Stop: 09/03/21 09:59 Last Admin: 09/03/21 08:12 Dose: 100 mls/hr Documented by: Sodium Chloride (Sodium Chloride 0.9% 10 Ml Syringe) 10 ml FLUSH ASDIRECTED PRN PRN Reason: Keep Vein Open Last Admin: 08/30/21 05:41 Dose: 10 ml Documented by: - Exam Quality Assessment: Supplemental Oxygen, DVT Prophylaxis General: Alert, Oriented, Cooperative, Moderate Distress Lungs: Crackles. No: Rales, Rhonchi, Wheezing Cardiovascular: Regular Rate, Regular Rhythm, No Murmurs GI/Abdominal Exam: Soft, Non-Tender, No Organomegaly, No Distention Extremities: Non-Tender, No Pedal Edema - Patient Data Result Diagrams: 09/02/21 04:30 09/02/21 04:30 Sepsis Event Note - Evaluation Sepsis Screening Result: Sepsis Risk - Focused Exam Vital Signs: Vital Signs Temp Pulse Resp BP Pulse Ox Pulse Ox 09/03/21 10:51 95.8 F L 78 20 137/76 95 09/03/21 08:27 93 L 09/03/21 07:29 95.4 F L 89 20 111/71 90 L 09/03/21 05:00 95 09/03/21 02:46 96.8 F L 72 20 116/69 92 L - Problem List Review Problem List Initiated/Reviewed/Updated: Yes - My Orders Last 24 Hours: My Active Orders 09/02/21 15:23 Trolamine Salicylate/Aloe Vera [Aspercreme 10%] See Dose Instructions TOP Q1H PRN 09/04/21 05:00 CBC WITH AUTO DIFF [HEME] Timed COMPREHENSIVE METABOLIC PN,CMP [CHEM] Timed 09/04/21 05:11 CRP [C-REACTIVE PROTEIN] [CHEM] AM D Dimer [D-DIMER QUANTITATIVE] [COAG] AM - Plan Plan:: ASSESSMENT AND PLAN COVID-19 INFECTION WITH BILATERAL PNEUMONIA-stable since admission with no significant decline or change in respiratory status. Modest improvement since yesterday, now on 7 L/min via high flow nasal cannula. -Limit IV fluids -Prone positioning if possible -Remdesivir 200 mg IV, then 100 mg IV daily for 4 days, today is day 5 of 5 -Dexamethasone 6 mg IV daily, today is day 5 -Supplemental oxygen as needed -Consider high flow humidified oxygen if she requires increased levels of supplemental support ACUTE HYPOXIC RESPIRATORY FAILURE-secondary to COVID-19 infection -Management as above CHRONIC LOW BACK PAIN-symptoms increased since admission, likely secondary to immobility related to hypoxia -Increase hydrocodone to every 4 hours as needed MAINTENANCE ISSUES -DVT prophylaxis; Lovenox 40 mg subcu daily -GI prophylaxis; not indicated -[place] catheter; not indicated -Nutrition; regular diet -Nicotine dependence; not required CODE STATUS-FULL CODE ADMISSION STATUS-patient will be admitted to inpatient status, expect at least a 2 night hospital stay for evaluation and management of problems as outlined above. At the time of this admission I do not reasonably expected evaluation and management of this problem will require more than a 96 hour hospital stay. DISPOSITION-anticipate discharge to home after the hospital stay.
[2021-09-03] MEDS: Trolamine Salicylate/Aloe Vera 10% Crm 85 GM Tube TOP PRN (18:05)
[2021-09-03] MEDS: CARISOPRODOL 350 MG PO PRN (22:05)
[2021-09-04] MEDS: Codeine/guaiFENesin 10-100 MG/5 ML Syrup 5 ML Cup PO PRN ×4 (03:19→23:46)
[2021-09-04] MEDS: Acetaminophen/HYDROcodone 325-10 MG Tab PO PRN ×6 (03:19→23:45)
[2021-09-04] MEDS: DULoxetine 30 MG Cap PO SCH (09:52)
[2021-09-04] MEDS: Celecoxib 200 MG Cap PO SCH ×3 (09:52→20:10)
[2021-09-04] MEDS: Enoxaparin 40 MG/0.4 ML Syringe SUBCUT SCH ×2 (09:53→10:04)
[2021-09-04] MEDS: Dexamethasone 4 MG/ML SDV IVPUSH SCH (09:53)
--- NOTE | 2021-09-04 14:48 | PCM.PN ---
- General Info Date of Service: 09/04/21 Subjective Update: No acute events overnight. Still requiring about 6 L of supplemental oxygen. Symptomatically she feels slightly better today with a little less shortness of breath. She does have an intermittent cough with some sputum production. No fevers. No chest pain. Appetite slowly getting better. She is able to get to the bathroom and back with mild to moderate dyspnea. Functional Status: Reports: Pain Controlled - Review of Systems General: Reports: Weakness Pulmonary: Reports: Shortness of Breath - Patient Data Vitals - Most Recent: Last Vital Signs Temp 36.3 C 09/04/21 14:44 Pulse 91 09/04/21 14:44 Resp 18 09/04/21 14:44 BP 123/70 09/04/21 14:44 Pulse Ox 93 L 09/04/21 14:44 Weight - Most Recent: 86.727 kg I&O - Last 24 Hours: Intake & Output 09/03/21 09/04/21 09/04/21 22:59 06:59 14:59 Intake Total 1096 296 500 Balance 1096 296 500 Lab Results Last 24 Hours: Laboratory Results - last 24 hr 09/04/21 09/04/21 09/04/21 Range/Units 04:40 04:40 04:40 WBC 13.0 H (4.5-11.0) K/uL RBC 4.56 (3.30-5.50) M/uL Hgb 13.0 (12.0-15.0) g/dL Hct 39.9 (36.0-48.0) % MCV 88 (80-98) fL MCH 29 (27-31) pg MCHC 33 (32-36) % Plt Count 239 (150-400) K/uL Add Manual Diff Yes Neutrophils % (Manual) 75 H (36-66) % Band Neutrophils % 1 L (5-11) % Lymphocytes % (Manual) 18 L (24-44) % Monocytes % (Manual) 6 (2-6) % Polychromasia D-Dimer, Quantitative 427.76 (0.0-500.0) ng/mL Sodium 141 (140-148) mmol/L Potassium 4.0 (3.6-5.2) mmol/L Chloride 104 (100-108) mmol/L Carbon Dioxide 31 (21-32) mmol/L Anion Gap 5.6 (5.0-14.0) mmol/L BUN 11 (7-18) mg/dL Creatinine 0.6 (0.6-1.0) mg/dL Est Cr Clr Drug Dosing 106.66 mL/min Estimated GFR (MDRD) > 60 (>60) Glucose 127 H (74-106) mg/dL Calcium 8.3 L (8.5-10.1) mg/dL Total Bilirubin 0.4 (0.2-1.0) mg/dL AST 36 (15-37) U/L ALT 62 (12-78) U/L Alkaline Phosphatase 125 H (46-116) U/L C-Reactive Protein (0.0-0.3) mg/dL Total Protein 6.4 (6.4-8.2) g/dL Albumin 2.7 L (3.4-5.0) g/dL Globulin 3.7 H (2.3-3.5) g/dL Albumin/Globulin Ratio 0.7 L (1.2-2.2) 09/04/21 Range/Units 04:40 WBC (4.5-11.0) K/uL RBC (3.30-5.50) M/uL Hgb (12.0-15.0) g/dL Hct (36.0-48.0) % MCV (80-98) fL MCH (27-31) pg MCHC (32-36) % Plt Count (150-400) K/uL Add Manual Diff Neutrophils % (Manual) (36-66) % Band Neutrophils % (5-11) % Lymphocytes % (Manual) (24-44) % Monocytes % (Manual) (2-6) % Polychromasia D-Dimer, Quantitative (0.0-500.0) ng/mL Sodium (140-148) mmol/L Potassium (3.6-5.2) mmol/L Chloride (100-108) mmol/L Carbon Dioxide (21-32) mmol/L Anion Gap (5.0-14.0) mmol/L BUN (7-18) mg/dL Creatinine (0.6-1.0) mg/dL Est Cr Clr Drug Dosing mL/min Estimated GFR (MDRD) (>60) Glucose (74-106) mg/dL Calcium (8.5-10.1) mg/dL Total Bilirubin (0.2-1.0) mg/dL AST (15-37) U/L ALT (12-78) U/L Alkaline Phosphatase (46-116) U/L C-Reactive Protein 1.77 H (0.0-0.3) mg/dL Total Protein (6.4-8.2) g/dL Albumin (3.4-5.0) g/dL Globulin (2.3-3.5) g/dL Albumin/Globulin Ratio (1.2-2.2) Med Orders - Current: Current Medications Acetaminophen (Acetaminophen 325 Mg Tab) 650 mg PO Q4H PRN PRN Reason: Pain (Mild 1-3)/fever Last Admin: 09/02/21 05:51 Dose: 650 mg Documented by: Hydrocodone Bitart/Acetaminophen (Acetaminophen/Hydrocodone 325-10 Mg Tab) 1 tab PO Q4H PRN PRN Reason: Pain Last Admin: 09/04/21 11:34 Dose: 1 tab Documented by: Benzonatate (Benzonatate 100 Mg Cap) 100 mg PO TID PRN PRN Reason: Cough Last Admin: 09/03/21 23:41 Dose: 100 mg Documented by: Celecoxib (Celecoxib 200 Mg Cap) 200 mg PO BID [facility] Last Admin: 09/04/21 09:52 Dose: 200 mg Documented by: Dexamethasone (Dexamethasone 4 Mg/Ml Sdv) 4 mg IVPUSH Q24H [facility] Last Admin: 09/04/21 09:53 Dose: 4 mg Documented by: Duloxetine HCl (Duloxetine 30 Mg Cap) 30 mg PO DAILY [facility] Last Admin: 09/04/21 09:52 Dose: 30 mg Documented by: Enoxaparin Sodium (Enoxaparin 40 Mg/0.4 Ml Syringe) 40 mg SUBCUT DAILY [facility] Last Admin: 09/04/21 10:04 Dose: 40 mg Documented by: Guaifenesin/Codeine Phosphate (Codeine/Guaifenesin 10-100 Mg/5 Ml Syrup 5 Ml Cup) 10 ml PO Q6H PRN PRN Reason: Cough Last Admin: 09/04/21 09:53 Dose: 10 ml Documented by: Ondansetron HCl (Ondansetron 4 Mg/2 Ml Sdv) 4 mg IV Q4H PRN PRN Reason: Nausea/Vomiting Carisoprodol 350mg (Tab (Ptom)) 1 each PO BEDTIME PRN PRN Reason: MUSCLE SPASM Last Admin: 09/03/21 22:05 Dose: 1 each Documented by: Polyethylene Glycol (Polyethylene Glycol 3350 Powder 17 Gm Packet) 17 gm PO DAILY PRN PRN Reason: Constipation Sodium Chloride (Sodium Chloride 0.9% 10 Ml Syringe) 10 ml FLUSH ASDIRECTED PRN PRN Reason: Keep Vein Open Trolamine Salicylate (Trolamine Salicylate/Aloe Vera 10% Crm 85 Gm Tube) 0 gm TOP Q1H PRN PRN Reason: Pain Last Admin: 09/03/21 18:05 Dose: 1 applic Documented by: Discontinued Medications Hydrocodone Bitart/Acetaminophen (Acetaminophen/Hydrocodone 325-10 Mg Tab) 1 tab PO TID PRN PRN Reason: Pain Last Admin: 09/02/21 07:42 Dose: 1 tab Documented by: Dexamethasone (Dexamethasone 4 Mg/Ml Sdv) 6 mg IVPUSH ONETIME ONE Stop: 08/30/21 06:42 Last Admin: 08/30/21 07:43 Dose: 6 mg Documented by: Duloxetine HCl (Duloxetine 30 Mg Cap) 60 mg PO ONETIME ONE Stop: 08/30/21 21:04 Last Admin: 08/30/21 21:33 Dose: 60 mg Documented by: Remdesivir 200 mg/ Sodium (Chloride) 250 mls @ 250 mls/hr IV ONETIME ONE Stop: 08/30/21 08:59 Last Admin: 08/30/21 07:43 Dose: 250 mls/hr Documented by: Remdesivir 100 mg/ Sodium (Chloride) 100 mls @ 100 mls/hr IV Q24H [facility] Stop: 09/03/21 09:59 Last Admin: 09/03/21 08:12 Dose: 100 mls/hr Documented by: Sodium Chloride (Sodium Chloride 0.9% 10 Ml Syringe) 10 ml FLUSH ASDIRECTED PRN PRN Reason: Keep Vein Open Last Admin: 08/30/21 05:41 Dose: 10 ml Documented by: - Exam Quality Assessment: Supplemental Oxygen General: Alert, Oriented, Cooperative, No Acute Distress Lungs: Normal Respiratory Effort, Crackles (few both bases ) Cardiovascular: Regular Rate, Regular Rhythm GI/Abdominal Exam: Soft, No Distention Extremities: No Pedal Edema. No: Increased Warmth Psy/Mental Status: Alert, Normal Affect - Patient Data Lab Results Last 24 hrs: Laboratory Results - last 24 hr 09/04/21 09/04/21 09/04/21 Range/Units 04:40 04:40 04:40 WBC 13.0 H (4.5-11.0) K/uL RBC 4.56 (3.30-5.50) M/uL Hgb 13.0 (12.0-15.0) g/dL Hct 39.9 (36.0-48.0) % MCV 88 (80-98) fL MCH 29 (27-31) pg MCHC 33 (32-36) % Plt Count 239 (150-400) K/uL Add Manual Diff Yes Neutrophils % (Manual) 75 H (36-66) % Band Neutrophils % 1 L (5-11) % Lymphocytes % (Manual) 18 L (24-44) % Monocytes % (Manual) 6 (2-6) % Polychromasia D-Dimer, Quantitative 427.76 (0.0-500.0) ng/mL Sodium 141 (140-148) mmol/L Potassium 4.0 (3.6-5.2) mmol/L Chloride 104 (100-108) mmol/L Carbon Dioxide 31 (21-32) mmol/L Anion Gap 5.6 (5.0-14.0) mmol/L BUN 11 (7-18) mg/dL Creatinine 0.6 (0.6-1.0) mg/dL Est Cr Clr Drug Dosing 106.66 mL/min Estimated GFR (MDRD) > 60 (>60) Glucose 127 H (74-106) mg/dL Calcium 8.3 L (8.5-10.1) mg/dL Total Bilirubin 0.4 (0.2-1.0) mg/dL AST 36 (15-37) U/L ALT 62 (12-78) U/L Alkaline Phosphatase 125 H (46-116) U/L C-Reactive Protein (0.0-0.3) mg/dL Total Protein 6.4 (6.4-8.2) g/dL Albumin 2.7 L (3.4-5.0) g/dL Globulin 3.7 H (2.3-3.5) g/dL Albumin/Globulin Ratio 0.7 L (1.2-2.2) 09/04/21 Range/Units 04:40 WBC (4.5-11.0) K/uL RBC (3.30-5.50) M/uL Hgb (12.0-15.0) g/dL Hct (36.0-48.0) % MCV (80-98) fL MCH (27-31) pg MCHC (32-36) % Plt Count (150-400) K/uL Add Manual Diff Neutrophils % (Manual) (36-66) % Band Neutrophils % (5-11) % Lymphocytes % (Manual) (24-44) % Monocytes % (Manual) (2-6) % Polychromasia D-Dimer, Quantitative (0.0-500.0) ng/mL Sodium (140-148) mmol/L Potassium (3.6-5.2) mmol/L Chloride (100-108) mmol/L Carbon Dioxide (21-32) mmol/L Anion Gap (5.0-14.0) mmol/L BUN (7-18) mg/dL Creatinine (0.6-1.0) mg/dL Est Cr Clr Drug Dosing mL/min Estimated GFR (MDRD) (>60) Glucose (74-106) mg/dL Calcium (8.5-10.1) mg/dL Total Bilirubin (0.2-1.0) mg/dL AST (15-37) U/L ALT (12-78) U/L Alkaline Phosphatase (46-116) U/L C-Reactive Protein 1.77 H (0.0-0.3) mg/dL Total Protein (6.4-8.2) g/dL Albumin (3.4-5.0) g/dL Globulin (2.3-3.5) g/dL Albumin/Globulin Ratio (1.2-2.2) Result Diagrams: 09/04/21 04:40 09/04/21 04:40 Sepsis Event Note - Evaluation Sepsis Screening Result: No Definite Risk - Focused Exam Vital Signs: Vital Signs Temp Pulse Resp BP Pulse Ox 09/04/21 14:44 36.3 C 91 18 123/70 93 L 09/04/21 11:38 36.0 C L 79 16 110/68 93 L 09/04/21 07:00 36.1 C 84 17 115/61 92 L 09/04/21 05:22 93 L 09/04/21 03:21 35.7 C L 86 18 126/69 94 L - Problem List Review Problem List Initiated/Reviewed/Updated: Yes - Plan Plan:: ASSESSMENT AND PLAN COVID-19 INFECTION WITH BILATERAL PNEUMONIA-complicated by acute respiratory failure with hypoxia. She is does seem to be slowly improving. D-dimer slightly lower today but CRP is slightly higher though still relatively low. -Limit IV fluids -Prone positioning if possible -Remdesivir x5 days complete -Dexamethasone 6 mg IV daily, today is day 6 -Enoxaparin every 24 hours -Supplemental oxygen as needed, wean as able -Isolation precautions ACUTE HYPOXIC RESPIRATORY FAILURE-secondary to COVID-19 infection. -Management as above CHRONIC LOW BACK PAIN-stable but bothersome. -Increase hydrocodone to every 4 hours as needed MAINTENANCE ISSUES -DVT prophylaxis; enoxaparin -GI prophylaxis; not indicated -[place] catheter; not indicated -Nutrition; regular diet -Nicotine dependence; not required DISPOSITION-anticipate discharge to home after the hospital stay. Jose Arthur MD
[2021-09-05] MEDS: Acetaminophen/HYDROcodone 325-10 MG Tab PO PRN ×5 (03:47→21:06)
[2021-09-05] MEDS: Trolamine Salicylate/Aloe Vera 10% Crm 85 GM Tube TOP PRN (03:50)
[2021-09-05] MEDS: DULoxetine 30 MG Cap PO SCH ×2 (07:59→21:07)
[2021-09-05] MEDS: Enoxaparin 40 MG/0.4 ML Syringe SUBCUT SCH (08:30)
[2021-09-05] MEDS: Dexamethasone 4 MG/ML SDV IVPUSH SCH (08:30)
[2021-09-05] MEDS: Celecoxib 200 MG Cap PO SCH ×2 (08:30→21:09)
--- NOTE | 2021-09-05 14:57 | PCM.PN ---
- General Info Date of Service: 09/05/21 Subjective Update: No acute events overnight. Oxygenation is stable. Still requiring 6 L of supplemental oxygen. She feels a little less short of breath today. Able to get to the bathroom and back but still short of breath with activity. Appetite has been good. Anxious to get home soon as she can to be with family. - Review of Systems General: Reports: Weakness. Denies: Fever Pulmonary: Reports: Shortness of Breath - Patient Data Vitals - Most Recent: Last Vital Signs Temp 35.5 C L 09/05/21 11:00 Pulse 80 09/05/21 11:00 Resp 16 09/05/21 11:00 BP 121/69 09/05/21 11:00 Pulse Ox 92 L 09/05/21 11:00 Weight - Most Recent: 86.727 kg Med Orders - Current: Current Medications Acetaminophen (Acetaminophen 325 Mg Tab) 650 mg PO Q4H PRN PRN Reason: Pain (Mild 1-3)/fever Last Admin: 09/02/21 05:51 Dose: 650 mg Documented by: Hydrocodone Bitart/Acetaminophen (Acetaminophen/Hydrocodone 325-10 Mg Tab) 1 tab PO Q4H PRN PRN Reason: Pain Last Admin: 09/05/21 12:03 Dose: 1 tab Documented by: Benzonatate (Benzonatate 100 Mg Cap) 100 mg PO TID PRN PRN Reason: Cough Last Admin: 09/03/21 23:41 Dose: 100 mg Documented by: Celecoxib (Celecoxib 200 Mg Cap) 200 mg PO BID [facility] Last Admin: 09/05/21 08:30 Dose: 200 mg Documented by: Dexamethasone (Dexamethasone 4 Mg/Ml Sdv) 4 mg IVPUSH Q24H [facility] Last Admin: 09/05/21 08:30 Dose: 4 mg Documented by: Duloxetine HCl (Duloxetine 30 Mg Cap) 30 mg PO DAILY [facility] Last Admin: 09/05/21 07:59 Dose: 30 mg Documented by: Enoxaparin Sodium (Enoxaparin 40 Mg/0.4 Ml Syringe) 40 mg SUBCUT DAILY [facility] Last Admin: 09/05/21 08:30 Dose: 40 mg Documented by: Guaifenesin/Codeine Phosphate (Codeine/Guaifenesin 10-100 Mg/5 Ml Syrup 5 Ml Cup) 10 ml PO Q6H PRN PRN Reason: Cough Last Admin: 09/04/21 23:46 Dose: 10 ml Documented by: Ondansetron HCl (Ondansetron 4 Mg/2 Ml Sdv) 4 mg IV Q4H PRN PRN Reason: Nausea/Vomiting Carisoprodol 350mg (Tab (Ptom)) 1 each PO BEDTIME PRN PRN Reason: MUSCLE SPASM Last Admin: 09/03/21 22:05 Dose: 1 each Documented by: Polyethylene Glycol (Polyethylene Glycol 3350 Powder 17 Gm Packet) 17 gm PO DAILY PRN PRN Reason: Constipation Sodium Chloride (Sodium Chloride 0.9% 10 Ml Syringe) 10 ml FLUSH ASDIRECTED PRN PRN Reason: Keep Vein Open Trolamine Salicylate (Trolamine Salicylate/Aloe Vera 10% Crm 85 Gm Tube) 0 gm TOP Q1H PRN PRN Reason: Pain Last Admin: 09/05/21 03:50 Dose: 1 applic Documented by: Discontinued Medications Hydrocodone Bitart/Acetaminophen (Acetaminophen/Hydrocodone 325-10 Mg Tab) 1 tab PO TID PRN PRN Reason: Pain Last Admin: 09/02/21 07:42 Dose: 1 tab Documented by: Dexamethasone (Dexamethasone 4 Mg/Ml Sdv) 6 mg IVPUSH ONETIME ONE Stop: 08/30/21 06:42 Last Admin: 08/30/21 07:43 Dose: 6 mg Documented by: Duloxetine HCl (Duloxetine 30 Mg Cap) 60 mg PO ONETIME ONE Stop: 08/30/21 21:04 Last Admin: 08/30/21 21:33 Dose: 60 mg Documented by: Remdesivir 200 mg/ Sodium (Chloride) 250 mls @ 250 mls/hr IV ONETIME ONE Stop: 08/30/21 08:59 Last Admin: 08/30/21 07:43 Dose: 250 mls/hr Documented by: Remdesivir 100 mg/ Sodium (Chloride) 100 mls @ 100 mls/hr IV Q24H [facility] Stop: 09/03/21 09:59 Last Admin: 09/03/21 08:12 Dose: 100 mls/hr Documented by: Sodium Chloride (Sodium Chloride 0.9% 10 Ml Syringe) 10 ml FLUSH ASDIRECTED PRN PRN Reason: Keep Vein Open Last Admin: 08/30/21 05:41 Dose: 10 ml Documented by: - Exam Quality Assessment: Supplemental Oxygen General: Alert, Oriented, Cooperative, No Acute Distress Lungs: Normal Respiratory Effort. No: Wheezing GI/Abdominal Exam: Soft, No Distention Extremities: No Pedal Edema. No: Increased Warmth Psy/Mental Status: Alert, Normal Affect - Patient Data Result Diagrams: 09/04/21 04:40 09/04/21 04:40 Sepsis Event Note - Evaluation Sepsis Screening Result: Sepsis Risk - Focused Exam Vital Signs: Vital Signs Temp Pulse Resp BP Pulse Ox 09/05/21 11:00 35.5 C L 80 16 121/69 92 L 09/05/21 07:00 35.8 C L 95 18 109/64 90 L 09/05/21 03:48 35.2 C L 76 16 110/72 95 - Problem List Review Problem List Initiated/Reviewed/Updated: Yes - My Orders Last 24 Hours: My Active Orders 09/06/21 05:00 CBC W/O DIFF,HEMOGRAM [HEME] Timed (1) CRP [C-REACTIVE PROTEIN] [CHEM] Timed D-DIMER QUANTITATIVE [COAG] Timed - Plan Plan:: ASSESSMENT AND PLAN COVID-19 INFECTION WITH BILATERAL PNEUMONIA-complicated by acute respiratory failure with hypoxia. She is does seem to be slowly improving. Still requiring 6 L of high flow oxygen. -Limit IV fluids -Prone positioning if possible -Remdesivir x5 days complete -Dexamethasone 6 mg IV daily, today is day 7 -Enoxaparin every 24 hours -Supplemental oxygen as needed, wean as able -Isolation precautions ACUTE HYPOXIC RESPIRATORY FAILURE-secondary to COVID-19 infection. -Management as above CHRONIC LOW BACK PAIN-stable but bothersome. Better with the pressure reduction mattress. -Increase hydrocodone to every 4 hours as needed MAINTENANCE ISSUES -DVT prophylaxis; enoxaparin -GI prophylaxis; not indicated -[place] catheter; not indicated -Nutrition; regular diet DISPOSITION-anticipate discharge to home after the hospital stay. She may need home oxygen. Jose Arthur MD
[2021-09-05] MEDS: Benzonatate 100 MG Cap PO PRN (21:06)
[2021-09-05] MEDS: Codeine/guaiFENesin 10-100 MG/5 ML Syrup 5 ML Cup PO PRN (21:06)
[2021-09-06] MEDS: Acetaminophen/HYDROcodone 325-10 MG Tab PO PRN ×5 (01:53→22:38)
[2021-09-06] MEDS: Enoxaparin 40 MG/0.4 ML Syringe SUBCUT SCH (09:29)
[2021-09-06] MEDS: DULoxetine 30 MG Cap PO SCH ×2 (09:29→21:34)
[2021-09-06] MEDS: Celecoxib 200 MG Cap PO SCH ×2 (09:29→21:34)
[2021-09-06] MEDS: Dexamethasone 4 MG/ML SDV IVPUSH SCH (09:29)
[2021-09-06] MEDS ORDERED: Ondansetron 4 MG Tab.DIS PO PRN (12:05)
--- NOTE | 2021-09-06 12:06 | PCM.PN ---
- General Info Date of Service: 09/06/21 Subjective Update: No acute events overnight. Patient feels a little less short of breath today. She was able to tolerate showering yesterday. No fevers. Appetite okay. Down to 4 L of supplemental oxygen. Very nervous about going home with oxygen because her sister recently of Covid. Her mother is still hospitalized with Covid though she is improving. Functional Status: Reports: Pain Controlled, Tolerating Diet - Review of Systems Neurological: Reports: Headache - Patient Data Vitals - Most Recent: Last Vital Signs Temp 36.1 C 09/06/21 10:53 Pulse 80 09/06/21 10:53 Resp 16 09/06/21 10:53 BP 123/80 09/06/21 10:53 Pulse Ox 95 09/06/21 10:53 Weight - Most Recent: 80.739 kg I&O - Last 24 Hours: Intake & Output 09/05/21 09/06/21 09/06/21 22:59 06:59 14:59 Intake Total 600 Balance 600 Lab Results Last 24 Hours: Laboratory Results - last 24 hr 09/06/21 09/06/21 09/06/21 Range/Units 05:45 05:45 05:45 WBC 16.2 H (4.5-11.0) K/uL RBC 4.73 (3.30-5.50) M/uL Hgb 13.3 (12.0-15.0) g/dL Hct 41.4 (36.0-48.0) % MCV 88 (80-98) fL MCH 28 (27-31) pg MCHC 32 (32-36) % Plt Count 325 (150-400) K/uL D-Dimer, Quantitative 905.09 H (0.0-500.0) ng/mL C-Reactive Protein 3.41 H (0.0-0.3) mg/dL Med Orders - Current: Current Medications Acetaminophen (Acetaminophen 325 Mg Tab) 650 mg PO Q4H PRN PRN Reason: Pain (Mild 1-3)/fever Last Admin: 09/02/21 05:51 Dose: 650 mg Documented by: Hydrocodone Bitart/Acetaminophen (Acetaminophen/Hydrocodone 325-10 Mg Tab) 1 tab PO Q4H PRN PRN Reason: Pain Last Admin: 09/06/21 05:58 Dose: 1 tab Documented by: Benzonatate (Benzonatate 100 Mg Cap) 100 mg PO TID PRN PRN Reason: Cough Last Admin: 09/05/21 21:06 Dose: 100 mg Documented by: Celecoxib (Celecoxib 200 Mg Cap) 200 mg PO BID [facility] Last Admin: 09/06/21 09:29 Dose: 200 mg Documented by: Dexamethasone (Dexamethasone 4 Mg/Ml Sdv) 4 mg IVPUSH Q24H [facility] Last Admin: 09/06/21 09:29 Dose: 4 mg Documented by: Duloxetine HCl (Duloxetine 30 Mg Cap) 60 mg PO BID [facility] Last Admin: 09/06/21 09:29 Dose: 60 mg Documented by: Enoxaparin Sodium (Enoxaparin 40 Mg/0.4 Ml Syringe) 40 mg SUBCUT DAILY [facility] Last Admin: 09/06/21 09:29 Dose: 40 mg Documented by: Guaifenesin/Codeine Phosphate (Codeine/Guaifenesin 10-100 Mg/5 Ml Syrup 5 Ml Cup) 10 ml PO Q6H PRN PRN Reason: Cough Last Admin: 09/05/21 21:06 Dose: 10 ml Documented by: Ondansetron HCl (Ondansetron 4 Mg/2 Ml Sdv) 4 mg IV Q4H PRN PRN Reason: Nausea/Vomiting Ondansetron HCl (Ondansetron 4 Mg Tab.Dis) 4 mg PO Q4H PRN PRN Reason: Nausea/Vomiting Carisoprodol 350mg (Tab (Ptom)) 1 each PO BEDTIME PRN PRN Reason: MUSCLE SPASM Last Admin: 09/03/21 22:05 Dose: 1 each Documented by: Polyethylene Glycol (Polyethylene Glycol 3350 Powder 17 Gm Packet) 17 gm PO DAILY PRN PRN Reason: Constipation Sodium Chloride (Sodium Chloride 0.9% 10 Ml Syringe) 10 ml FLUSH ASDIRECTED PRN PRN Reason: Keep Vein Open Trolamine Salicylate (Trolamine Salicylate/Aloe Vera 10% Crm 85 Gm Tube) 0 gm TOP Q1H PRN PRN Reason: Pain Last Admin: 09/05/21 03:50 Dose: 1 applic Documented by: Discontinued Medications Hydrocodone Bitart/Acetaminophen (Acetaminophen/Hydrocodone 325-10 Mg Tab) 1 tab PO TID PRN PRN Reason: Pain Last Admin: 09/02/21 07:42 Dose: 1 tab Documented by: Dexamethasone (Dexamethasone 4 Mg/Ml Sdv) 6 mg IVPUSH ONETIME ONE Stop: 08/30/21 06:42 Last Admin: 08/30/21 07:43 Dose: 6 mg Documented by: Duloxetine HCl (Duloxetine 30 Mg Cap) 30 mg PO DAILY [facility] Last Admin: 09/05/21 07:59 Dose: 30 mg Documented by: Duloxetine HCl (Duloxetine 30 Mg Cap) 60 mg PO ONETIME ONE Stop: 08/30/21 21:04 Last Admin: 08/30/21 21:33 Dose: 60 mg Documented by: Remdesivir 200 mg/ Sodium (Chloride) 250 mls @ 250 mls/hr IV ONETIME ONE Stop: 08/30/21 08:59 Last Admin: 08/30/21 07:43 Dose: 250 mls/hr Documented by: Remdesivir 100 mg/ Sodium (Chloride) 100 mls @ 100 mls/hr IV Q24H [facility] Stop: 09/03/21 09:59 Last Admin: 09/03/21 08:12 Dose: 100 mls/hr Documented by: Sodium Chloride (Sodium Chloride 0.9% 10 Ml Syringe) 10 ml FLUSH ASDIRECTED PRN PRN Reason: Keep Vein Open Last Admin: 08/30/21 05:41 Dose: 10 ml Documented by: - Exam Quality Assessment: Supplemental Oxygen General: Alert, Oriented, Cooperative, No Acute Distress Lungs: Normal Respiratory Effort. No: Wheezing GI/Abdominal Exam: Soft, No Distention Extremities: No Pedal Edema. No: Increased Warmth Skin: Warm, Dry Psy/Mental Status: Alert, Normal Affect - Patient Data Lab Results Last 24 hrs: Laboratory Results - last 24 hr 09/06/21 09/06/21 09/06/21 Range/Units 05:45 05:45 05:45 WBC 16.2 H (4.5-11.0) K/uL RBC 4.73 (3.30-5.50) M/uL Hgb 13.3 (12.0-15.0) g/dL Hct 41.4 (36.0-48.0) % MCV 88 (80-98) fL MCH 28 (27-31) pg MCHC 32 (32-36) % Plt Count 325 (150-400) K/uL D-Dimer, Quantitative 905.09 H (0.0-500.0) ng/mL C-Reactive Protein 3.41 H (0.0-0.3) mg/dL Result Diagrams: 09/06/21 05:45 09/04/21 04:40 Sepsis Event Note - Evaluation Sepsis Screening Result: Sepsis Risk - Focused Exam Vital Signs: Vital Signs Temp Pulse Resp BP Pulse Ox Pulse Ox 09/06/21 10:53 36.1 C 80 16 123/80 95 09/06/21 08:04 92 L 09/06/21 07:44 35.9 C L 90 18 108/55 L 92 L 09/06/21 07:22 91 L 09/06/21 02:53 95 09/06/21 02:50 35.4 C L 87 16 117/66 92 L - Problem List Review Problem List Initiated/Reviewed/Updated: Yes - My Orders Last 24 Hours: My Active Orders 09/05/21 21:00 DULoxetine [Cymbalta] 60 mg PO BID 09/06/21 12:05 Ondansetron [Zofran ODT] 4 mg PO Q4H PRN - Plan Plan:: ASSESSMENT AND PLAN COVID-19 INFECTION WITH BILATERAL PNEUMONIA-complicated by acute respiratory failure with hypoxia. She is does seem to be slowly improving. Still requiring 4 L of oxygen. -Limit IV fluids -Prone positioning if possible -Remdesivir x5 days complete -Dexamethasone 6 mg IV daily, today is day 8 -Enoxaparin every 24 hours -Supplemental oxygen as needed, wean as able -Isolation precautions ACUTE HYPOXIC RESPIRATORY FAILURE-secondary to COVID-19 infection. -Management as above CHRONIC LOW BACK PAIN-stable but bothersome. Better with the pressure reduction mattress. -Increase hydrocodone to every 4 hours as needed MAINTENANCE ISSUES -DVT prophylaxis; enoxaparin -GI prophylaxis; not indicated -[place] catheter; not indicated -Nutrition; regular diet DISPOSITION-anticipate discharge to home after the hospital stay. She may need home oxygen. Jose Arthur MD
[2021-09-06] MEDS: Codeine/guaiFENesin 10-100 MG/5 ML Syrup 5 ML Cup PO PRN (18:36)
[2021-09-06] MEDS: Benzonatate 100 MG Cap PO PRN (18:36)
[2021-09-07] MEDS: Acetaminophen/HYDROcodone 325-10 MG Tab PO PRN ×6 (02:46→22:36)
[2021-09-07] MEDS: Dexamethasone 2 MG Tab PO SCH (09:12)
[2021-09-07] MEDS: DULoxetine 30 MG Cap PO SCH ×2 (09:12→20:28)
[2021-09-07] MEDS: Celecoxib 200 MG Cap PO SCH ×2 (09:13→20:28)
[2021-09-07] MEDS: Enoxaparin 40 MG/0.4 ML Syringe SUBCUT SCH (09:13)
[2021-09-07] MEDS: Codeine/guaiFENesin 10-100 MG/5 ML Syrup 5 ML Cup PO PRN (10:48)
[2021-09-07] MEDS: Trolamine Salicylate/Aloe Vera 10% Crm 85 GM Tube TOP PRN (10:49)
--- NOTE | 2021-09-07 15:52 | PCM.PN ---
- General Info Date of Service: 09/07/21 Subjective Update: There were no acute events overnight. Patient continues to feel weak and short of breath though this is slowly improving. She reports feeling sweaty from time to time. She has not had any fevers. She is now down to 3 L of supplemental oxygen. We did discuss going home with oxygen and she is very anxious about going home with oxygen given her sister's recent from Covid. Functional Status: Reports: Pain Controlled, Tolerating Diet - Review of Systems General: Reports: Weakness Pulmonary: Reports: Shortness of Breath Musculoskeletal: Reports: Back Pain - Patient Data Vitals - Most Recent: Last Vital Signs Temp 35.8 C L 09/07/21 14:00 Pulse 97 09/07/21 14:00 Resp 18 09/07/21 14:00 BP 123/69 09/07/21 14:00 Pulse Ox 95 09/07/21 14:00 Weight - Most Recent: 80.739 kg I&O - Last 24 Hours: Intake & Output 09/07/21 09/07/21 09/07/21 06:59 14:59 22:59 Intake Total 1200 900 Balance 1200 900 Med Orders - Current: Current Medications Acetaminophen (Acetaminophen 325 Mg Tab) 650 mg PO Q4H PRN PRN Reason: Pain (Mild 1-3)/fever Last Admin: 09/02/21 05:51 Dose: 650 mg Documented by: Hydrocodone Bitart/Acetaminophen (Acetaminophen/Hydrocodone 325-10 Mg Tab) 1 tab PO Q4H PRN PRN Reason: Pain Last Admin: 09/07/21 14:44 Dose: 1 tab Documented by: Benzonatate (Benzonatate 100 Mg Cap) 100 mg PO TID PRN PRN Reason: Cough Last Admin: 09/06/21 18:36 Dose: 100 mg Documented by: Celecoxib (Celecoxib 200 Mg Cap) 200 mg PO BID [facility] Last Admin: 09/07/21 09:13 Dose: 200 mg Documented by: Dexamethasone (Dexamethasone 2 Mg Tab) 6 mg PO DAILY [facility] Last Admin: 09/07/21 09:12 Dose: 6 mg Documented by: Duloxetine HCl (Duloxetine 30 Mg Cap) 60 mg PO BID [facility] Last Admin: 09/07/21 09:12 Dose: 60 mg Documented by: Enoxaparin Sodium (Enoxaparin 40 Mg/0.4 Ml Syringe) 40 mg SUBCUT DAILY [facility] Last Admin: 09/07/21 09:13 Dose: 40 mg Documented by: Guaifenesin/Codeine Phosphate (Codeine/Guaifenesin 10-100 Mg/5 Ml Syrup 5 Ml Cup) 10 ml PO Q6H PRN PRN Reason: Cough Last Admin: 09/07/21 10:48 Dose: 10 ml Documented by: Ondansetron HCl (Ondansetron 4 Mg/2 Ml Sdv) 4 mg IV Q4H PRN PRN Reason: Nausea/Vomiting Ondansetron HCl (Ondansetron 4 Mg Tab.Dis) 4 mg PO Q4H PRN PRN Reason: Nausea/Vomiting Carisoprodol 350mg (Tab (Ptom)) 1 each PO BEDTIME PRN PRN Reason: MUSCLE SPASM Last Admin: 09/03/21 22:05 Dose: 1 each Documented by: Polyethylene Glycol (Polyethylene Glycol 3350 Powder 17 Gm Packet) 17 gm PO DAILY PRN PRN Reason: Constipation Sodium Chloride (Sodium Chloride 0.9% 10 Ml Syringe) 10 ml FLUSH ASDIRECTED PRN PRN Reason: Keep Vein Open Trolamine Salicylate (Trolamine Salicylate/Aloe Vera 10% Crm 85 Gm Tube) 0 gm TOP Q1H PRN PRN Reason: Pain Last Admin: 09/07/21 10:49 Dose: 1 applic Documented by: Discontinued Medications Hydrocodone Bitart/Acetaminophen (Acetaminophen/Hydrocodone 325-10 Mg Tab) 1 tab PO TID PRN PRN Reason: Pain Last Admin: 09/02/21 07:42 Dose: 1 tab Documented by: Dexamethasone (Dexamethasone 4 Mg/Ml Sdv) 6 mg IVPUSH ONETIME ONE Stop: 08/30/21 06:42 Last Admin: 08/30/21 07:43 Dose: 6 mg Documented by: Dexamethasone (Dexamethasone 4 Mg/Ml Sdv) 4 mg IVPUSH Q24H [facility] Last Admin: 09/06/21 09:29 Dose: 4 mg Documented by: Duloxetine HCl (Duloxetine 30 Mg Cap) 30 mg PO DAILY [facility] Last Admin: 09/05/21 07:59 Dose: 30 mg Documented by: Duloxetine HCl (Duloxetine 30 Mg Cap) 60 mg PO ONETIME ONE Stop: 08/30/21 21:04 Last Admin: 08/30/21 21:33 Dose: 60 mg Documented by: Remdesivir 200 mg/ Sodium (Chloride) 250 mls @ 250 mls/hr IV ONETIME ONE Stop: 08/30/21 08:59 Last Admin: 08/30/21 07:43 Dose: 250 mls/hr Documented by: Remdesivir 100 mg/ Sodium (Chloride) 100 mls @ 100 mls/hr IV Q24H [facility] Stop: 09/03/21 09:59 Last Admin: 09/03/21 08:12 Dose: 100 mls/hr Documented by: Sodium Chloride (Sodium Chloride 0.9% 10 Ml Syringe) 10 ml FLUSH ASDIRECTED PRN PRN Reason: Keep Vein Open Last Admin: 08/30/21 05:41 Dose: 10 ml Documented by: - Exam Quality Assessment: Supplemental Oxygen General: Alert, Oriented, Cooperative, No Acute Distress Lungs: Normal Respiratory Effort. No: Wheezing GI/Abdominal Exam: Soft, No Distention Extremities: No Pedal Edema Psy/Mental Status: Alert, Normal Affect - Patient Data Result Diagrams: 09/06/21 05:45 09/04/21 04:40 Sepsis Event Note - Evaluation Sepsis Screening Result: Sepsis Risk - Focused Exam Vital Signs: Vital Signs Temp Pulse Resp BP Pulse Ox 09/07/21 14:00 35.8 C L 97 18 123/69 95 09/07/21 07:00 35.3 C L 91 18 113/53 L 93 L - Problem List Review Problem List Initiated/Reviewed/Updated: Yes - My Orders Last 24 Hours: My Active Orders 09/07/21 09:00 dexAMETHasone 6 mg PO DAILY 09/08/21 05:00 BASIC METABOLIC PANEL,BMP [CHEM] Timed CBC W/O DIFF,HEMOGRAM [HEME] Timed (1) CRP [C-REACTIVE PROTEIN] [CHEM] Timed D-DIMER QUANTITATIVE [COAG] Timed - Plan Plan:: ASSESSMENT AND PLAN COVID-19 INFECTION WITH BILATERAL PNEUMONIA-complicated by acute respiratory failure with hypoxia. Steadily improving. Down to 3 L of oxygen. -Limit IV fluids -Prone positioning if possible -Remdesivir x5 days complete -Dexamethasone 6 mg daily, today is day 9 9 -Enoxaparin every 24 hours -Supplemental oxygen as needed, wean as able -Isolation precautions ACUTE HYPOXIC RESPIRATORY FAILURE-secondary to COVID-19 infection. -Management as above CHRONIC LOW BACK PAIN-stable. -Continue hydrocodone to every 4 hours as needed MAINTENANCE ISSUES -DVT prophylaxis; enoxaparin -GI prophylaxis; not indicated -[place] catheter; not indicated -Nutrition; regular diet DISPOSITION-anticipate discharge to home after the hospital stay. She may need home oxygen. Hopefully she will be ready in a day or 2. Jose Arthur MD
[2021-09-07] MEDS: Benzonatate 100 MG Cap PO PRN (18:42)
[2021-09-08] MEDS: Acetaminophen/HYDROcodone 325-10 MG Tab PO PRN ×5 (02:56→19:14)
[2021-09-08] MEDS: Celecoxib 200 MG Cap PO SCH ×2 (08:29→20:27)
[2021-09-08] MEDS: Dexamethasone 2 MG Tab PO SCH (08:29)
[2021-09-08] MEDS: DULoxetine 30 MG Cap PO SCH ×2 (08:29→20:28)
[2021-09-08] MEDS: Enoxaparin 40 MG/0.4 ML Syringe SUBCUT SCH (08:29)
[2021-09-08] MEDS: Codeine/guaiFENesin 10-100 MG/5 ML Syrup 5 ML Cup PO PRN (10:40)
[2021-09-08] MEDS: Benzonatate 100 MG Cap PO PRN (10:40)
--- NOTE | 2021-09-08 13:37 | PCM.PN ---
- General Info Date of Service: 09/08/21 Subjective Update: No acute events overnight. Respiratory status stable to improved and she is down to 3 L. Still short of breath with activity. Still feels weak and tired. Occasio nal episodes of sweating though these are improving some. No fevers. We did discuss the potential to go home in the next couple of days. She is hoping to feel just a little better and be moving a little better with less dyspnea. She is also quite anxious about going home since her sister of Covid very recently. Functional Status: Reports: Pain Controlled, Tolerating Diet - Review of Systems General: Reports: Weakness Pulmonary: Reports: Shortness of Breath - Patient Data Vitals - Most Recent: Last Vital Signs Temp 35.5 C L 09/08/21 10:43 Pulse 87 09/08/21 10:43 Resp 18 09/08/21 10:43 BP 127/64 09/08/21 10:43 Pulse Ox 93 L 09/08/21 10:43 Weight - Most Recent: 80.739 kg I&O - Last 24 Hours: Intake & Output 09/07/21 09/08/21 09/08/21 22:59 06:59 14:59 Intake Total 1100 600 Balance 1100 600 Lab Results Last 24 Hours: Laboratory Results - last 24 hr 09/08/21 09/08/21 09/08/21 Range/Units 05:30 05:30 05:30 WBC 12.2 H (4.5-11.0) K/uL RBC 4.59 (3.30-5.50) M/uL Hgb 13.0 (12.0-15.0) g/dL Hct 39.7 (36.0-48.0) % MCV 87 (80-98) fL MCH 28 (27-31) pg MCHC 33 (32-36) % Plt Count 350 (150-400) K/uL D-Dimer, Quantitative 1340.51 H (0.0-500.0) ng/mL Sodium 136 L (140-148) mmol/L Potassium 4.1 (3.6-5.2) mmol/L Chloride 100 (100-108) mmol/L Carbon Dioxide 29 (21-32) mmol/L Anion Gap 11.1 (5.0-14.0) mmol/L BUN 11 (7-18) mg/dL Creatinine 0.7 (0.6-1.0) mg/dL Est Cr Clr Drug Dosing 91.42 mL/min Estimated GFR (MDRD) > 60 (>60) Glucose 134 H (74-106) mg/dL Calcium 9.0 (8.5-10.1) mg/dL C-Reactive Protein 2.12 H (0.0-0.3) mg/dL Med Orders - Current: Current Medications Acetaminophen (Acetaminophen 325 Mg Tab) 650 mg PO Q4H PRN PRN Reason: Pain (Mild 1-3)/fever Last Admin: 09/02/21 05:51 Dose: 650 mg Documented by: Hydrocodone Bitart/Acetaminophen (Acetaminophen/Hydrocodone 325-10 Mg Tab) 1 tab PO Q4H PRN PRN Reason: Pain Last Admin: 09/08/21 10:40 Dose: 1 tab Documented by: Benzonatate (Benzonatate 100 Mg Cap) 100 mg PO TID PRN PRN Reason: Cough Last Admin: 09/08/21 10:40 Dose: 100 mg Documented by: Celecoxib (Celecoxib 200 Mg Cap) 200 mg PO BID [facility] Last Admin: 09/08/21 08:29 Dose: 200 mg Documented by: Dexamethasone (Dexamethasone 2 Mg Tab) 6 mg PO DAILY [facility] Last Admin: 09/08/21 08:29 Dose: 6 mg Documented by: Duloxetine HCl (Duloxetine 30 Mg Cap) 60 mg PO BID [facility] Last Admin: 09/08/21 08:29 Dose: 60 mg Documented by: Enoxaparin Sodium (Enoxaparin 40 Mg/0.4 Ml Syringe) 40 mg SUBCUT DAILY [facility] Last Admin: 09/08/21 08:29 Dose: 40 mg Documented by: Guaifenesin/Codeine Phosphate (Codeine/Guaifenesin 10-100 Mg/5 Ml Syrup 5 Ml Cup) 10 ml PO Q6H PRN PRN Reason: Cough Last Admin: 09/08/21 10:40 Dose: 10 ml Documented by: Ondansetron HCl (Ondansetron 4 Mg/2 Ml Sdv) 4 mg IV Q4H PRN PRN Reason: Nausea/Vomiting Ondansetron HCl (Ondansetron 4 Mg Tab.Dis) 4 mg PO Q4H PRN PRN Reason: Nausea/Vomiting Carisoprodol 350mg (Tab (Ptom)) 1 each PO BEDTIME PRN PRN Reason: MUSCLE SPASM Last Admin: 09/03/21 22:05 Dose: 1 each Documented by: Polyethylene Glycol (Polyethylene Glycol 3350 Powder 17 Gm Packet) 17 gm PO DAILY PRN PRN Reason: Constipation Sodium Chloride (Sodium Chloride 0.9% 10 Ml Syringe) 10 ml FLUSH ASDIRECTED PRN PRN Reason: Keep Vein Open Trolamine Salicylate (Trolamine Salicylate/Aloe Vera 10% Crm 85 Gm Tube) 0 gm TOP Q1H PRN PRN Reason: Pain Last Admin: 09/07/21 10:49 Dose: 1 applic Documented by: Discontinued Medications Hydrocodone Bitart/Acetaminophen (Acetaminophen/Hydrocodone 325-10 Mg Tab) 1 tab PO TID PRN PRN Reason: Pain Last Admin: 09/02/21 07:42 Dose: 1 tab Documented by: Dexamethasone (Dexamethasone 4 Mg/Ml Sdv) 6 mg IVPUSH ONETIME ONE Stop: 08/30/21 06:42 Last Admin: 08/30/21 07:43 Dose: 6 mg Documented by: Dexamethasone (Dexamethasone 4 Mg/Ml Sdv) 4 mg IVPUSH Q24H [facility] Last Admin: 09/06/21 09:29 Dose: 4 mg Documented by: Duloxetine HCl (Duloxetine 30 Mg Cap) 30 mg PO DAILY [facility] Last Admin: 09/05/21 07:59 Dose: 30 mg Documented by: Duloxetine HCl (Duloxetine 30 Mg Cap) 60 mg PO ONETIME ONE Stop: 08/30/21 21:04 Last Admin: 08/30/21 21:33 Dose: 60 mg Documented by: Remdesivir 200 mg/ Sodium (Chloride) 250 mls @ 250 mls/hr IV ONETIME ONE Stop: 08/30/21 08:59 Last Admin: 08/30/21 07:43 Dose: 250 mls/hr Documented by: Remdesivir 100 mg/ Sodium (Chloride) 100 mls @ 100 mls/hr IV Q24H [facility] Stop: 09/03/21 09:59 Last Admin: 09/03/21 08:12 Dose: 100 mls/hr Documented by: Sodium Chloride (Sodium Chloride 0.9% 10 Ml Syringe) 10 ml FLUSH ASDIRECTED PRN PRN Reason: Keep Vein Open Last Admin: 08/30/21 05:41 Dose: 10 ml Documented by: - Exam Quality Assessment: Supplemental Oxygen General: Alert, Oriented, Cooperative, No Acute Distress Lungs: Normal Respiratory Effort. No: Wheezing GI/Abdominal Exam: Soft, No Distention Extremities: No Pedal Edema Skin: Warm, Dry Psy/Mental Status: Alert, Normal Affect - Patient Data Lab Results Last 24 hrs: Laboratory Results - last 24 hr 09/08/21 09/08/21 09/08/21 Range/Units 05:30 05:30 05:30 WBC 12.2 H (4.5-11.0) K/uL RBC 4.59 (3.30-5.50) M/uL Hgb 13.0 (12.0-15.0) g/dL Hct 39.7 (36.0-48.0) % MCV 87 (80-98) fL MCH 28 (27-31) pg MCHC 33 (32-36) % Plt Count 350 (150-400) K/uL D-Dimer, Quantitative 1340.51 H (0.0-500.0) ng/mL Sodium 136 L (140-148) mmol/L Potassium 4.1 (3.6-5.2) mmol/L Chloride 100 (100-108) mmol/L Carbon Dioxide 29 (21-32) mmol/L Anion Gap 11.1 (5.0-14.0) mmol/L BUN 11 (7-18) mg/dL Creatinine 0.7 (0.6-1.0) mg/dL Est Cr Clr Drug Dosing 91.42 mL/min Estimated GFR (MDRD) > 60 (>60) Glucose 134 H (74-106) mg/dL Calcium 9.0 (8.5-10.1) mg/dL C-Reactive Protein 2.12 H (0.0-0.3) mg/dL Result Diagrams: 09/08/21 05:30 09/08/21 05:30 Sepsis Event Note - Evaluation Sepsis Screening Result: Sepsis Risk - Focused Exam Vital Signs: Vital Signs Temp Pulse Resp BP Pulse Ox 09/08/21 10:43 35.5 C L 87 18 127/64 93 L 09/08/21 07:00 94 L 09/08/21 03:00 35.0 C L 78 18 134/68 95 - Problem List Review Problem List Initiated/Reviewed/Updated: Yes - Plan Plan:: ASSESSMENT AND PLAN COVID-19 INFECTION WITH BILATERAL PNEUMONIA-complicated by acute respiratory failure with hypoxia. Steadily improving. Stable on 3 L of supplemental oxygen. -Limit IV fluids -Prone positioning if possible -Remdesivir x5 days complete -Dexamethasone 6 mg daily, today is day 10 -Enoxaparin every 24 hours -Supplemental oxygen as needed, wean as able -Isolation precautions ACUTE HYPOXIC RESPIRATORY FAILURE-secondary to COVID-19 infection. -Management as above CHRONIC LOW BACK PAIN-stable. -Continue hydrocodone to every 4 hours as needed MAINTENANCE ISSUES -DVT prophylaxis; enoxaparin -GI prophylaxis; not indicated -[place] catheter; not indicated -Nutrition; regular diet DISPOSITION-anticipate discharge to home after the hospital stay. She may need home oxygen. Hopefully she will be ready in a day or 2. Jose Arthur MD
[2021-09-08] MEDS: CARISOPRODOL 350 MG PO PRN (21:16)
[2021-09-09] MEDS: Acetaminophen/HYDROcodone 325-10 MG Tab PO PRN ×5 (05:29→22:25)
[2021-09-09] MEDS: Enoxaparin 40 MG/0.4 ML Syringe SUBCUT SCH (08:23)
[2021-09-09] MEDS: Dexamethasone 2 MG Tab PO SCH (08:24)
[2021-09-09] MEDS: Celecoxib 200 MG Cap PO SCH ×2 (08:24→20:13)
[2021-09-09] MEDS: DULoxetine 30 MG Cap PO SCH ×2 (08:24→20:13)
--- NOTE | 2021-09-09 12:17 | PCM.PN ---
- General Info Date of Service: 09/09/21 Subjective Update: No acute events overnight. Patient feels about the same today as yesterday. Still feels weak and tired. Appetite has been okay. Still having episodes of sweating. Still short of breath with any activity. Stable on 3 L of oxygen. We did talk about going home since she has been stable on the 3 L but she continues to report she feels too weak, too tired and too scared to go home but is hoping that in the next day or 2 she will be ready. Functional Status: Reports: Pain Controlled, Tolerating Diet - Review of Systems General: Reports: Weakness, Fatigue, Night Sweats - Patient Data Vitals - Most Recent: Last Vital Signs Temp 35.2 C L 09/09/21 11:00 Pulse 86 09/09/21 11:00 Resp 16 09/09/21 11:00 BP 120/66 09/09/21 11:00 Pulse Ox 96 09/09/21 11:00 Weight - Most Recent: 80.739 kg I&O - Last 24 Hours: Intake & Output 09/08/21 09/09/21 09/09/21 22:59 06:59 14:59 Intake Total 400 800 Balance 400 800 Med Orders - Current: Current Medications Acetaminophen (Acetaminophen 325 Mg Tab) 650 mg PO Q4H PRN PRN Reason: Pain (Mild 1-3)/fever Last Admin: 09/02/21 05:51 Dose: 650 mg Documented by: Hydrocodone Bitart/Acetaminophen (Acetaminophen/Hydrocodone 325-10 Mg Tab) 1 tab PO Q4H PRN PRN Reason: Pain Last Admin: 09/09/21 09:33 Dose: 1 tab Documented by: Benzonatate (Benzonatate 100 Mg Cap) 100 mg PO TID PRN PRN Reason: Cough Last Admin: 09/08/21 10:40 Dose: 100 mg Documented by: Celecoxib (Celecoxib 200 Mg Cap) 200 mg PO BID [facility] Last Admin: 09/09/21 08:24 Dose: 200 mg Documented by: Dexamethasone (Dexamethasone 2 Mg Tab) 4 mg PO DAILY [facility] Last Admin: 09/09/21 08:24 Dose: 4 mg Documented by: Duloxetine HCl (Duloxetine 30 Mg Cap) 60 mg PO BID [facility] Last Admin: 09/09/21 08:24 Dose: 60 mg Documented by: Enoxaparin Sodium (Enoxaparin 40 Mg/0.4 Ml Syringe) 40 mg SUBCUT DAILY [facility] Last Admin: 09/09/21 08:23 Dose: 40 mg Documented by: Guaifenesin/Codeine Phosphate (Codeine/Guaifenesin 10-100 Mg/5 Ml Syrup 5 Ml Cup) 10 ml PO Q6H PRN PRN Reason: Cough Last Admin: 09/08/21 10:40 Dose: 10 ml Documented by: Ondansetron HCl (Ondansetron 4 Mg/2 Ml Sdv) 4 mg IV Q4H PRN PRN Reason: Nausea/Vomiting Ondansetron HCl (Ondansetron 4 Mg Tab.Dis) 4 mg PO Q4H PRN PRN Reason: Nausea/Vomiting Carisoprodol 350mg (Tab (Ptom)) 1 each PO BEDTIME PRN PRN Reason: MUSCLE SPASM Last Admin: 09/08/21 21:16 Dose: 1 each Documented by: Polyethylene Glycol (Polyethylene Glycol 3350 Powder 17 Gm Packet) 17 gm PO DAILY PRN PRN Reason: Constipation Sodium Chloride (Sodium Chloride 0.9% 10 Ml Syringe) 10 ml FLUSH ASDIRECTED PRN PRN Reason: Keep Vein Open Trolamine Salicylate (Trolamine Salicylate/Aloe Vera 10% Crm 85 Gm Tube) 0 gm TOP Q1H PRN PRN Reason: Pain Last Admin: 09/07/21 10:49 Dose: 1 applic Documented by: Discontinued Medications Hydrocodone Bitart/Acetaminophen (Acetaminophen/Hydrocodone 325-10 Mg Tab) 1 tab PO TID PRN PRN Reason: Pain Last Admin: 09/02/21 07:42 Dose: 1 tab Documented by: Dexamethasone (Dexamethasone 4 Mg/Ml Sdv) 6 mg IVPUSH ONETIME ONE Stop: 08/30/21 06:42 Last Admin: 08/30/21 07:43 Dose: 6 mg Documented by: Dexamethasone (Dexamethasone 4 Mg/Ml Sdv) 4 mg IVPUSH Q24H [facility] Last Admin: 09/06/21 09:29 Dose: 4 mg Documented by: Dexamethasone (Dexamethasone 2 Mg Tab) 6 mg PO DAILY [facility] Last Admin: 09/08/21 08:29 Dose: 6 mg Documented by: Duloxetine HCl (Duloxetine 30 Mg Cap) 30 mg PO DAILY [facility] Last Admin: 09/05/21 07:59 Dose: 30 mg Documented by: Duloxetine HCl (Duloxetine 30 Mg Cap) 60 mg PO ONETIME ONE Stop: 08/30/21 21:04 Last Admin: 08/30/21 21:33 Dose: 60 mg Documented by: Remdesivir 200 mg/ Sodium (Chloride) 250 mls @ 250 mls/hr IV ONETIME ONE Stop: 08/30/21 08:59 Last Admin: 08/30/21 07:43 Dose: 250 mls/hr Documented by: Remdesivir 100 mg/ Sodium (Chloride) 100 mls @ 100 mls/hr IV Q24H [facility] Stop: 09/03/21 09:59 Last Admin: 09/03/21 08:12 Dose: 100 mls/hr Documented by: Sodium Chloride (Sodium Chloride 0.9% 10 Ml Syringe) 10 ml FLUSH ASDIRECTED PRN PRN Reason: Keep Vein Open Last Admin: 08/30/21 05:41 Dose: 10 ml Documented by: - Exam Quality Assessment: Supplemental Oxygen General: Alert, Oriented, Cooperative, No Acute Distress Lungs: Normal Respiratory Effort. No: Wheezing GI/Abdominal Exam: Soft, No Distention Extremities: No Pedal Edema Psy/Mental Status: Alert, Normal Affect - Patient Data Result Diagrams: 09/08/21 05:30 09/08/21 05:30 Sepsis Event Note - Evaluation Sepsis Screening Result: No Definite Risk - Focused Exam Vital Signs: Vital Signs Temp Pulse Resp BP Pulse Ox Pulse Ox 09/09/21 11:00 35.2 C L 86 16 120/66 96 09/09/21 09:00 95 09/09/21 07:00 35.5 C L 95 16 144/72 H 93 L 09/09/21 05:31 35.9 C L 84 16 129/73 93 L 09/09/21 03:00 74 15 96 - Problem List Review Problem List Initiated/Reviewed/Updated: Yes - My Orders Last 24 Hours: My Active Orders 09/09/21 09:00 dexAMETHasone 4 mg PO DAILY 09/10/21 05:00 CBC W/O DIFF,HEMOGRAM [HEME] Timed (1) CRP [C-REACTIVE PROTEIN] [CHEM] Timed D-DIMER QUANTITATIVE [COAG] Timed - Plan Plan:: ASSESSMENT AND PLAN COVID-19 INFECTION WITH BILATERAL PNEUMONIA-complicated by acute respiratory failure with hypoxia. Steadily improving but still not feeling very good. Stable on 3 L of supplemental oxygen. -Prone positioning if possible -Remdesivir x5 days complete -Dexamethasone 6 mg daily complete -Enoxaparin every 24 hours -Supplemental oxygen as needed, wean as able -Isolation precautions ACUTE HYPOXIC RESPIRATORY FAILURE-secondary to COVID-19 infection. -Management as above CHRONIC LOW BACK PAIN-stable. -Continue hydrocodone to every 4 hours as needed MAINTENANCE ISSUES -DVT prophylaxis; enoxaparin -GI prophylaxis; not indicated -[place] catheter; not indicated -Nutrition; regular diet DISPOSITION-anticipate discharge to home after the hospital stay. She will need home oxygen. Hopefully she will be ready in a day or 2. Jose Arthur MD
[2021-09-10] MEDS: CARISOPRODOL 350 MG PO PRN ×2 (00:05→23:03)
[2021-09-10] MEDS: Acetaminophen/HYDROcodone 325-10 MG Tab PO PRN ×5 (03:11→19:58)
[2021-09-10] MEDS: Dexamethasone 2 MG Tab PO SCH (08:55)
[2021-09-10] MEDS: DULoxetine 30 MG Cap PO SCH ×2 (08:55→20:00)
[2021-09-10] MEDS: Celecoxib 200 MG Cap PO SCH ×2 (08:55→20:00)
[2021-09-10] MEDS: Enoxaparin 40 MG/0.4 ML Syringe SUBCUT SCH (08:55)
--- NOTE | 2021-09-10 12:51 | PCM.PN ---
- General Info Date of Service: 09/10/21 Subjective Update: No acute events overnight. Stable on 3 L of oxygen. Patient continues to feel weak, tired. She continues to have sweaty spells. She does think she is slowly getting better. She remains very nervous about going home. Inflammatory markers are much better today. Appetite is good. No fevers. - Patient Data Vitals - Most Recent: Last Vital Signs Temp 35.9 C L 09/10/21 11:50 Pulse 87 09/10/21 11:50 Resp 18 09/10/21 11:50 BP 109/67 09/10/21 11:50 Pulse Ox 93 L 09/10/21 11:50 Weight - Most Recent: 80.739 kg I&O - Last 24 Hours: Intake & Output 09/09/21 09/10/21 09/10/21 22:59 06:59 14:59 Intake Total 400 600 Balance 400 600 Lab Results Last 24 Hours: Laboratory Results - last 24 hr 09/10/21 09/10/21 09/10/21 Range/Units 05:00 05:00 05:00 WBC 11.5 H (4.5-11.0) K/uL RBC 4.64 (3.30-5.50) M/uL Hgb 13.1 (12.0-15.0) g/dL Hct 40.3 (36.0-48.0) % MCV 87 (80-98) fL MCH 28 (27-31) pg MCHC 33 (32-36) % Plt Count 374 (150-400) K/uL D-Dimer, Quantitative 601.93 H (0.0-500.0) ng/mL C-Reactive Protein 0.36 H (0.0-0.3) mg/dL Med Orders - Current: Current Medications Acetaminophen (Acetaminophen 325 Mg Tab) 650 mg PO Q4H PRN PRN Reason: Pain (Mild 1-3)/fever Last Admin: 09/02/21 05:51 Dose: 650 mg Documented by: Hydrocodone Bitart/Acetaminophen (Acetaminophen/Hydrocodone 325-10 Mg Tab) 1 tab PO Q4H PRN PRN Reason: Pain Last Admin: 09/10/21 11:52 Dose: 1 tab Documented by: Benzonatate (Benzonatate 100 Mg Cap) 100 mg PO TID PRN PRN Reason: Cough Last Admin: 09/08/21 10:40 Dose: 100 mg Documented by: Celecoxib (Celecoxib 200 Mg Cap) 200 mg PO BID [facility] Last Admin: 09/10/21 08:55 Dose: 200 mg Documented by: Dexamethasone (Dexamethasone 2 Mg Tab) 4 mg PO DAILY [facility] Last Admin: 09/10/21 08:55 Dose: 4 mg Documented by: Duloxetine HCl (Duloxetine 30 Mg Cap) 60 mg PO BID [facility] Last Admin: 09/10/21 08:55 Dose: 60 mg Documented by: Enoxaparin Sodium (Enoxaparin 40 Mg/0.4 Ml Syringe) 40 mg SUBCUT DAILY [facility] Last Admin: 09/10/21 08:55 Dose: 40 mg Documented by: Guaifenesin/Codeine Phosphate (Codeine/Guaifenesin 10-100 Mg/5 Ml Syrup 5 Ml Cup) 10 ml PO Q6H PRN PRN Reason: Cough Last Admin: 09/08/21 10:40 Dose: 10 ml Documented by: Ondansetron HCl (Ondansetron 4 Mg/2 Ml Sdv) 4 mg IV Q4H PRN PRN Reason: Nausea/Vomiting Ondansetron HCl (Ondansetron 4 Mg Tab.Dis) 4 mg PO Q4H PRN PRN Reason: Nausea/Vomiting Carisoprodol 350mg (Tab (Ptom)) 1 each PO BEDTIME PRN PRN Reason: MUSCLE SPASM Last Admin: 09/10/21 00:05 Dose: 1 each Documented by: Polyethylene Glycol (Polyethylene Glycol 3350 Powder 17 Gm Packet) 17 gm PO DAILY PRN PRN Reason: Constipation Sodium Chloride (Sodium Chloride 0.9% 10 Ml Syringe) 10 ml FLUSH ASDIRECTED PRN PRN Reason: Keep Vein Open Trolamine Salicylate (Trolamine Salicylate/Aloe Vera 10% Crm 85 Gm Tube) 0 gm TOP Q1H PRN PRN Reason: Pain Last Admin: 09/07/21 10:49 Dose: 1 applic Documented by: Discontinued Medications Hydrocodone Bitart/Acetaminophen (Acetaminophen/Hydrocodone 325-10 Mg Tab) 1 tab PO TID PRN PRN Reason: Pain Last Admin: 09/02/21 07:42 Dose: 1 tab Documented by: Dexamethasone (Dexamethasone 4 Mg/Ml Sdv) 6 mg IVPUSH ONETIME ONE Stop: 08/30/21 06:42 Last Admin: 08/30/21 07:43 Dose: 6 mg Documented by: Dexamethasone (Dexamethasone 4 Mg/Ml Sdv) 4 mg IVPUSH Q24H [facility] Last Admin: 09/06/21 09:29 Dose: 4 mg Documented by: Dexamethasone (Dexamethasone 2 Mg Tab) 6 mg PO DAILY [facility] Last Admin: 09/08/21 08:29 Dose: 6 mg Documented by: Duloxetine HCl (Duloxetine 30 Mg Cap) 30 mg PO DAILY [facility] Last Admin: 09/05/21 07:59 Dose: 30 mg Documented by: Duloxetine HCl (Duloxetine 30 Mg Cap) 60 mg PO ONETIME ONE Stop: 08/30/21 21:04 Last Admin: 08/30/21 21:33 Dose: 60 mg Documented by: Remdesivir 200 mg/ Sodium (Chloride) 250 mls @ 250 mls/hr IV ONETIME ONE Stop: 08/30/21 08:59 Last Admin: 08/30/21 07:43 Dose: 250 mls/hr Documented by: Remdesivir 100 mg/ Sodium (Chloride) 100 mls @ 100 mls/hr IV Q24H [facility] Stop: 09/03/21 09:59 Last Admin: 09/03/21 08:12 Dose: 100 mls/hr Documented by: Sodium Chloride (Sodium Chloride 0.9% 10 Ml Syringe) 10 ml FLUSH ASDIRECTED PRN PRN Reason: Keep Vein Open Last Admin: 08/30/21 05:41 Dose: 10 ml Documented by: - Exam Quality Assessment: Supplemental Oxygen General: Alert, Oriented, Cooperative, No Acute Distress Lungs: Normal Respiratory Effort. No: Wheezing GI/Abdominal Exam: Soft, No Distention Extremities: No Pedal Edema Psy/Mental Status: Alert, Normal Affect - Patient Data Lab Results Last 24 hrs: Laboratory Results - last 24 hr 09/10/21 09/10/21 09/10/21 Range/Units 05:00 05:00 05:00 WBC 11.5 H (4.5-11.0) K/uL RBC 4.64 (3.30-5.50) M/uL Hgb 13.1 (12.0-15.0) g/dL Hct 40.3 (36.0-48.0) % MCV 87 (80-98) fL MCH 28 (27-31) pg MCHC 33 (32-36) % Plt Count 374 (150-400) K/uL D-Dimer, Quantitative 601.93 H (0.0-500.0) ng/mL C-Reactive Protein 0.36 H (0.0-0.3) mg/dL Result Diagrams: 09/10/21 05:00 09/08/21 05:30 Sepsis Event Note - Evaluation Sepsis Screening Result: No Definite Risk - Focused Exam Vital Signs: Vital Signs Temp Pulse Resp BP Pulse Ox Pulse Ox 09/10/21 11:50 35.9 C L 87 18 109/67 93 L 09/10/21 09:00 95 09/10/21 07:00 35.1 C L 81 16 116/67 95 09/10/21 03:10 35.3 C L 80 18 130/80 95 09/10/21 01:27 95 - Problem List Review Problem List Initiated/Reviewed/Updated: Yes - Plan Plan:: ASSESSMENT AND PLAN COVID-19 INFECTION WITH BILATERAL PNEUMONIA-complicated by acute respiratory failure with hypoxia. Steadily improving but still not feeling very good. Stable on 3 L of supplemental oxygen. CRP and D-dimer have improved significantly. -Prone positioning if possible -Remdesivir x5 days complete -Dexamethasone 6 mg daily complete, started 4 mg taper -Enoxaparin every 24 hours -Supplemental oxygen as needed, wean as able -Isolation precautions ACUTE HYPOXIC RESPIRATORY FAILURE-secondary to COVID-19 infection. -Management as above CHRONIC LOW BACK PAIN-stable. -Continue hydrocodone to every 4 hours as needed MAINTENANCE ISSUES -DVT prophylaxis; enoxaparin -GI prophylaxis; not indicated -Livingston catheter; not indicated -Nutrition; regular diet DISPOSITION-anticipate discharge to home after the hospital stay. She will need home oxygen. Hopefully she will be ready tomorrow. Jose Arthur MD
[2021-09-11] MEDS: Acetaminophen/HYDROcodone 325-10 MG Tab PO PRN ×5 (05:46→22:47)
[2021-09-11] MEDS: Celecoxib 200 MG Cap PO SCH ×2 (08:57→20:52)
[2021-09-11] MEDS: DULoxetine 30 MG Cap PO SCH ×2 (08:57→20:52)
[2021-09-11] MEDS: Dexamethasone 2 MG Tab PO SCH (08:57)
[2021-09-11] MEDS: Enoxaparin 40 MG/0.4 ML Syringe SUBCUT SCH (08:57)
--- NOTE | 2021-09-11 13:14 | PCM.DCSUM1 ---
Discharge Summary - Hospital Course Brief History: Ms. Porter is a 50-year-old woman who was admitted through the emergency department with weakness and shortness of breath secondary to COVID-19 infection. - Discharge Data Discharge Date: 09/11/21 Discharge Disposition: Home, Self-Care 01 Condition: Fair - Referral to Home Health Primary Care Physician: PCP None - Discharge Diagnosis/Problem(s) (1) COVID-19 SNOMED Code(s): 773063993 ICD Code: U07.1 - COVID-19 Status: Acute Current Visit: Yes (2) Hypoxia SNOMED Code(s): 791489099 ICD Code: R09.02 - HYPOXEMIA Status: Acute Current Visit: Yes (3) Chronic low back pain SNOMED Code(s): 035311342 ICD Code: M54.50 - LOW BACK PAIN, UNSPECIFIED; G89.29 - OTHER CHRONIC PAIN Status: Chronic Current Visit: No - Patient Summary/Data Hospital Course: Ms. Porter is a 50-year-old woman who was admitted through the emergency department with progressive weakness, shortness of breath, hypoxia, secondary to COVID-19 infection with bilateral pneumonia. Symptoms have been present for approximately 6 days and her shortness of breath has become progressively worse over the past few days. She presented to the emergency department for further evaluation and was found to be hypoxic on room air. Testing for COVID-19 found to be positive. Blood cell count is normal, chest x-ray shows bilateral pulmonary infiltrates consistent with COVID-19 infection. On admission she was given supplemental oxygen as needed via high flow nasal cannula. She was started on IV remdesivir and dexamethasone. Oxygen use did increase after admission and she was at a peak of 8 L/min via high flow nasal cannula. She remained in this range for the first few days and then gradually improved throughout the rest of her hospital stay. She completed a full course of remdesivir and at the time of discharge was started on a tapering dose of dexamethasone that will be continued on an outpatient basis. She continued to require lower dose supplemental oxygen up until the time of discharge. On 08 September she had an oxygen saturation of 86% while on room air and at rest. Activity will be as tolerated and she will resume her usual diet. Follow-up appointment will be scheduled with her primary care provider within 1 week. - Patient Instructions Diet: Usual Diet as Tolerated Activity: As Tolerated Other/Special Instructions: Please schedule follow-up appointment with primary care provider within 1 week. - Discharge Plan *PRESCRIPTION DRUG MONITORING PROGRAM REVIEWED*: Not Applicable *COPY OF PRESCRIPTION DRUG MONITORING REPORT IN PATIENT LUPIS: Not Applicable Prescriptions/Med Rec: dexAMETHasone [Dexamethasone] 4 mg PO DAILY #24 tab Home Medications: Home Meds Multivitamin [Daily Multiple Vitamin] 1 tab PO DAILY 08/19/13 [History] DULoxetine HCl [Cymbalta] 60 mg PO BID 09/04/16 [History] carisoprodoL [Soma] 350 mg PO BEDTIME PRN 09/04/16 [History] Cyanocobalamin (Vitamin B12) [Vitamin B12] 2,500 mcg SL DAILY #100 tab.sl 09/12/16 [Rx] Hydrocodone/Acetaminophen [Hydrocodon-Acetaminophn 10-325] 1 tab PO TID PRN 12/26/16 [History] Celecoxib [CeleBREX] 200 mg PO BID 03/18/20 [History] Beta-Carotene [Beta Carotene] 25,000 unit PO DAILY 01/11/21 [History] Folic Acid 1 mg PO DAILY 01/11/21 [History] Iron,Carbonyl/Ascorbic Acid [Vitron-C Tablet] 1 tab PO DAILY 01/11/21 [History] Zinc Gluconate 500 mg PO DAILY 01/11/21 [History] dexAMETHasone [Dexamethasone] 4 mg PO DAILY #24 tab 09/11/21 [Rx] Oxygen Therapy Mode: Nasal Cannula Oxygen Flow Rate (L/min): 3 Patient Handouts: Hypoxia, Fall Prevention in the Home, Adult, [id number], COVID-19 Referrals: Skyler Wagner MD [Physician] - 09/15/21 2:00 pm (Please arrive 15 minutes early to register for your appointment. Your appointment with Dr. Wagner is at the [facility]. ) - Discharge Summary/Plan Comment DC Time >30 min.: No Total # of Minutes for Discharge Time: 15 - Patient Data Vitals - Most Recent: Last Vital Signs Temp 94.9 F L 09/11/21 11:00 Pulse 90 09/11/21 11:00 Resp 16 09/11/21 11:00 BP 113/73 09/11/21 11:00 Pulse Ox 92 L 09/11/21 11:00 Weight - Most Recent: 178 lb I&O - Last 24 hours: Intake & Output 09/10/21 09/11/21 09/11/21 22:59 06:59 14:59 Intake Total 480 500 Balance 480 500 Med Orders - Current: Current Medications Acetaminophen (Acetaminophen 325 Mg Tab) 650 mg PO Q4H PRN PRN Reason: Pain (Mild 1-3)/fever Last Admin: 09/02/21 05:51 Dose: 650 mg Documented by: Hydrocodone Bitart/Acetaminophen (Acetaminophen/Hydrocodone 325-10 Mg Tab) 1 tab PO Q4H PRN PRN Reason: Pain Last Admin: 09/11/21 10:14 Dose: 1 tab Documented by: Benzonatate (Benzonatate 100 Mg Cap) 100 mg PO TID PRN PRN Reason: Cough Last Admin: 09/08/21 10:40 Dose: 100 mg Documented by: Celecoxib (Celecoxib 200 Mg Cap) 200 mg PO BID [facility] Last Admin: 09/11/21 08:57 Dose: 200 mg Documented by: Dexamethasone (Dexamethasone 2 Mg Tab) 4 mg PO DAILY [facility] Last Admin: 09/11/21 08:57 Dose: 4 mg Documented by: Duloxetine HCl (Duloxetine 30 Mg Cap) 60 mg PO BID [facility] Last Admin: 09/11/21 08:57 Dose: 60 mg Documented by: Enoxaparin Sodium (Enoxaparin 40 Mg/0.4 Ml Syringe) 40 mg SUBCUT DAILY [facility] Last Admin: 09/11/21 08:57 Dose: 40 mg Documented by: Guaifenesin/Codeine Phosphate (Codeine/Guaifenesin 10-100 Mg/5 Ml Syrup 5 Ml Cup) 10 ml PO Q6H PRN PRN Reason: Cough Last Admin: 09/08/21 10:40 Dose: 10 ml Documented by: Ondansetron HCl (Ondansetron 4 Mg/2 Ml Sdv) 4 mg IV Q4H PRN PRN Reason: Nausea/Vomiting Ondansetron HCl (Ondansetron 4 Mg Tab.Dis) 4 mg PO Q4H PRN PRN Reason: Nausea/Vomiting Carisoprodol 350mg (Tab (Ptom)) 1 each PO BEDTIME PRN PRN Reason: MUSCLE SPASM Last Admin: 09/10/21 23:03 Dose: 1 each Documented by: Polyethylene Glycol (Polyethylene Glycol 3350 Powder 17 Gm Packet) 17 gm PO DAILY PRN PRN Reason: Constipation Sodium Chloride (Sodium Chloride 0.9% 10 Ml Syringe) 10 ml FLUSH ASDIRECTED PRN PRN Reason: Keep Vein Open Trolamine Salicylate (Trolamine Salicylate/Aloe Vera 10% Crm 85 Gm Tube) 0 gm TOP Q1H PRN PRN Reason: Pain Last Admin: 09/07/21 10:49 Dose: 1 applic Documented by: Discontinued Medications Hydrocodone Bitart/Acetaminophen (Acetaminophen/Hydrocodone 325-10 Mg Tab) 1 tab PO TID PRN PRN Reason: Pain Last Admin: 09/02/21 07:42 Dose: 1 tab Documented by: Dexamethasone (Dexamethasone 4 Mg/Ml Sdv) 6 mg IVPUSH ONETIME ONE Stop: 08/30/21 06:42 Last Admin: 08/30/21 07:43 Dose: 6 mg Documented by: Dexamethasone (Dexamethasone 4 Mg/Ml Sdv) 4 mg IVPUSH Q24H [facility] Last Admin: 09/06/21 09:29 Dose: 4 mg Documented by: Dexamethasone (Dexamethasone 2 Mg Tab) 6 mg PO DAILY [facility] Last Admin: 09/08/21 08:29 Dose: 6 mg Documented by: Duloxetine HCl (Duloxetine 30 Mg Cap) 30 mg PO DAILY [facility] Last Admin: 09/05/21 07:59 Dose: 30 mg Documented by: Duloxetine HCl (Duloxetine 30 Mg Cap) 60 mg PO ONETIME ONE Stop: 08/30/21 21:04 Last Admin: 08/30/21 21:33 Dose: 60 mg Documented by: Remdesivir 200 mg/ Sodium (Chloride) 250 mls @ 250 mls/hr IV ONETIME ONE Stop: 08/30/21 08:59 Last Admin: 08/30/21 07:43 Dose: 250 mls/hr Documented by: Remdesivir 100 mg/ Sodium (Chloride) 100 mls @ 100 mls/hr IV Q24H [facility] Stop: 09/03/21 09:59 Last Admin: 09/03/21 08:12 Dose: 100 mls/hr Documented by: Sodium Chloride (Sodium Chloride 0.9% 10 Ml Syringe) 10 ml FLUSH ASDIRECTED PRN PRN Reason: Keep Vein Open Last Admin: 08/30/21 05:41 Dose: 10 ml Documented by: - Exam General: Reports: Alert, Oriented, Cooperative, Mild Distress Lungs: Reports: Clear to Auscultation, Normal Respiratory Effort. Denies: Crackles, Rales, Rhonchi, Wheezing Cardiovascular: Reports: Regular Rate, Regular Rhythm, No Murmurs GI/Abdominal Exam: Soft, Non-Tender, No Organomegaly, No Distention Extremities: Non-Tender, No Pedal Edema
--- NOTE | 2021-09-11 15:59 | PCM.PN ---
- General Info Date of Service: 09/11/21 Subjective Update: Ms. villagran has been fairly stable over the past few days. She continues to require low level of supplemental oxygen. There has been progressive improvement in appetite and overall strength. Plan had been for discharged home today but she was unable to find a ride so she will be kept 1 additional day. Functional Status: Reports: Tolerating Diet, Ambulating, Urinating - Review of Systems General: Reports: Weakness, Fatigue. Denies: Fever, Chills Pulmonary: Reports: Shortness of Breath. Denies: Pleuritic Chest Pain, Cough, Sputum, Hemoptysis, Wheezing Cardiovascular: Reports: Dyspnea on Exertion. Denies: Chest Pain, Palpitations, Orthopnea, PND, Edema, Lightheadedness Gastrointestinal: Reports: No Symptoms Genitourinary: Reports: No Symptoms - Patient Data Vitals - Most Recent: Last Vital Signs Temp 94.9 F L 09/11/21 11:00 Pulse 90 09/11/21 11:00 Resp 16 09/11/21 11:00 BP 113/73 09/11/21 11:00 Pulse Ox 92 L 09/11/21 11:00 Weight - Most Recent: 178 lb I&O - Last 24 Hours: Intake & Output 09/11/21 09/11/21 09/11/21 06:59 14:59 22:59 Intake Total 500 Balance 500 Med Orders - Current: Current Medications Acetaminophen (Acetaminophen 325 Mg Tab) 650 mg PO Q4H PRN PRN Reason: Pain (Mild 1-3)/fever Last Admin: 09/02/21 05:51 Dose: 650 mg Documented by: Hydrocodone Bitart/Acetaminophen (Acetaminophen/Hydrocodone 325-10 Mg Tab) 1 tab PO Q4H PRN PRN Reason: Pain Last Admin: 09/11/21 14:42 Dose: 1 tab Documented by: Benzonatate (Benzonatate 100 Mg Cap) 100 mg PO TID PRN PRN Reason: Cough Last Admin: 09/08/21 10:40 Dose: 100 mg Documented by: Celecoxib (Celecoxib 200 Mg Cap) 200 mg PO BID [facility] Last Admin: 09/11/21 08:57 Dose: 200 mg Documented by: Dexamethasone (Dexamethasone 2 Mg Tab) 4 mg PO DAILY [facility] Last Admin: 09/11/21 08:57 Dose: 4 mg Documented by: Duloxetine HCl (Duloxetine 30 Mg Cap) 60 mg PO BID [facility] Last Admin: 09/11/21 08:57 Dose: 60 mg Documented by: Enoxaparin Sodium (Enoxaparin 40 Mg/0.4 Ml Syringe) 40 mg SUBCUT DAILY [facility] Last Admin: 09/11/21 08:57 Dose: 40 mg Documented by: Guaifenesin/Codeine Phosphate (Codeine/Guaifenesin 10-100 Mg/5 Ml Syrup 5 Ml Cup) 10 ml PO Q6H PRN PRN Reason: Cough Last Admin: 09/08/21 10:40 Dose: 10 ml Documented by: Ondansetron HCl (Ondansetron 4 Mg/2 Ml Sdv) 4 mg IV Q4H PRN PRN Reason: Nausea/Vomiting Ondansetron HCl (Ondansetron 4 Mg Tab.Dis) 4 mg PO Q4H PRN PRN Reason: Nausea/Vomiting Carisoprodol 350mg (Tab (Ptom)) 1 each PO BEDTIME PRN PRN Reason: MUSCLE SPASM Last Admin: 09/10/21 23:03 Dose: 1 each Documented by: Polyethylene Glycol (Polyethylene Glycol 3350 Powder 17 Gm Packet) 17 gm PO DAILY PRN PRN Reason: Constipation Sodium Chloride (Sodium Chloride 0.9% 10 Ml Syringe) 10 ml FLUSH ASDIRECTED PRN PRN Reason: Keep Vein Open Trolamine Salicylate (Trolamine Salicylate/Aloe Vera 10% Crm 85 Gm Tube) 0 gm TOP Q1H PRN PRN Reason: Pain Last Admin: 09/07/21 10:49 Dose: 1 applic Documented by: Discontinued Medications Hydrocodone Bitart/Acetaminophen (Acetaminophen/Hydrocodone 325-10 Mg Tab) 1 tab PO TID PRN PRN Reason: Pain Last Admin: 09/02/21 07:42 Dose: 1 tab Documented by: Dexamethasone (Dexamethasone 4 Mg/Ml Sdv) 6 mg IVPUSH ONETIME ONE Stop: 08/30/21 06:42 Last Admin: 08/30/21 07:43 Dose: 6 mg Documented by: Dexamethasone (Dexamethasone 4 Mg/Ml Sdv) 4 mg IVPUSH Q24H [facility] Last Admin: 09/06/21 09:29 Dose: 4 mg Documented by: Dexamethasone (Dexamethasone 2 Mg Tab) 6 mg PO DAILY [facility] Last Admin: 09/08/21 08:29 Dose: 6 mg Documented by: Duloxetine HCl (Duloxetine 30 Mg Cap) 30 mg PO DAILY [facility] Last Admin: 09/05/21 07:59 Dose: 30 mg Documented by: Duloxetine HCl (Duloxetine 30 Mg Cap) 60 mg PO ONETIME ONE Stop: 08/30/21 21:04 Last Admin: 08/30/21 21:33 Dose: 60 mg Documented by: Remdesivir 200 mg/ Sodium (Chloride) 250 mls @ 250 mls/hr IV ONETIME ONE Stop: 08/30/21 08:59 Last Admin: 08/30/21 07:43 Dose: 250 mls/hr Documented by: Remdesivir 100 mg/ Sodium (Chloride) 100 mls @ 100 mls/hr IV Q24H [facility] Stop: 09/03/21 09:59 Last Admin: 09/03/21 08:12 Dose: 100 mls/hr Documented by: Sodium Chloride (Sodium Chloride 0.9% 10 Ml Syringe) 10 ml FLUSH ASDIRECTED PRN PRN Reason: Keep Vein Open Last Admin: 08/30/21 05:41 Dose: 10 ml Documented by: - Exam Quality Assessment: Supplemental Oxygen, DVT Prophylaxis General: Alert, Oriented, Cooperative, Mild Distress Lungs: Clear to Auscultation, Normal Respiratory Effort Cardiovascular: Regular Rate, Regular Rhythm, No Murmurs GI/Abdominal Exam: Soft, Non-Tender, No Organomegaly, No Distention Extremities: Non-Tender, No Pedal Edema - Patient Data Result Diagrams: 09/10/21 05:00 09/08/21 05:30 Sepsis Event Note - Evaluation Sepsis Screening Result: No Definite Risk - Focused Exam Vital Signs: Vital Signs Temp Pulse Resp BP Pulse Ox Pulse Ox 09/11/21 11:00 94.9 F L 90 16 113/73 92 L 09/11/21 09:00 94 L 09/11/21 07:00 95.7 F L 90 16 116/72 91 L - Problem List & Annotations (1) COVID-19 SNOMED Code(s): 143846469 Code(s): U07.1 - COVID-19 Status: Acute Current Visit: Yes (2) Hypoxia SNOMED Code(s): 998733474 Code(s): R09.02 - HYPOXEMIA Status: Acute Current Visit: Yes (3) Chronic low back pain SNOMED Code(s): 069234250 Code(s): M54.50 - LOW BACK PAIN, UNSPECIFIED; G89.29 - OTHER CHRONIC PAIN Status: Chronic Current Visit: No - Problem List Review Problem List Initiated/Reviewed/Updated: Yes - My Orders Last 24 Hours: My Active Orders 09/11/21 13:08 Ready for Discharge [RC] PER UNIT ROUTINE - Plan Plan:: ASSESSMENT AND PLAN COVID-19 INFECTION WITH BILATERAL PNEUMONIA-complicated by acute respiratory failure with hypoxia. Oxygen level stable over the past few days, unable to discharge today as she was unable to find a ride. -Prone positioning if possible -Remdesivir x5 days complete -Dexamethasone 6 mg daily complete, started 4 mg taper -Enoxaparin every 24 hours -Supplemental oxygen as needed, wean as able -Isolation precautions ACUTE HYPOXIC RESPIRATORY FAILURE-secondary to COVID-19 infection. -Management as above CHRONIC LOW BACK PAIN-stable. -Continue hydrocodone to every 4 hours as needed MAINTENANCE ISSUES -DVT prophylaxis; enoxaparin -GI prophylaxis; not indicated -Living[place] catheter; not indicated -Nutrition; regular diet DISPOSITION-anticipate discharge to home after the hospital stay. She will need home oxygen. Hopefully she will be ready tomorrow.
[2021-09-12] MEDS: CARISOPRODOL 350 MG PO PRN (01:27)
[2021-09-12] MEDS: Acetaminophen/HYDROcodone 325-10 MG Tab PO PRN ×2 (06:08→10:13)
[2021-09-12] MEDS: DULoxetine 30 MG Cap PO SCH (08:22)
[2021-09-12] MEDS: Dexamethasone 2 MG Tab PO SCH (08:24)
[2021-09-12 08:34] VITALS: BP 126/68; PULSE 84
[2021-09-12] MEDS: Celecoxib 200 MG Cap PO SCH (10:13)
[2021-09-12] MEDS: Enoxaparin 40 MG/0.4 ML Syringe SUBCUT SCH (11:53)
== END 2021-09-12 11:55 | disposition home or self-care (01) | DRG 137 ==
LOC: JP.ED 05:15 → JP.2SS 08:26
PROVIDERS: ADMIT Hospitalist; ATTEND Hospitalist
PROC: XW033E5 Introduction of Remdesivir Anti-infective into Peripheral Vein, Percutaneous Approach, New Technology Group 5 (ICD-10-PCS; principal; 2021-08-30)
PROC: 3E0333Z Introduction of Anti-inflammatory into Peripheral Vein, Percutaneous Approach (ICD-10-PCS; 2021-08-30)
PROC: 8E0ZXY6 Isolation (ICD-10-PCS; 2021-08-30)
PROC: 5A0945A Assistance with Respiratory Ventilation, 24-96 Consecutive Hours, High Flow/Velocity Cannula (ICD-10-PCS; 2021-08-31)
PROC: 3E0DX3Z Introduction of Anti-inflammatory into Mouth and Pharynx, External Approach (ICD-10-PCS; 2021-09-07)
DX: U07.1 COVID-19 (principal); J12.82 Pneumonia due to coronavirus disease 2019; J96.01 Acute respiratory failure with hypoxia; M54.50 Low back pain, unspecified; G89.29 Other chronic pain; H54.7 Unspecified visual loss; E78.00 Pure hypercholesterolemia, unspecified; I10 Essential (primary) hypertension; K21.9 Gastro-esophageal reflux disease without esophagitis; F41.9 Anxiety disorder, unspecified; F32.A Depression, unspecified; E66.9 Obesity, unspecified; D64.9 Anemia, unspecified; E11.9 Type 2 diabetes mellitus without complications; Z90.49 Acquired absence of other specified parts of digestive tract; Z79.899 Other long term (current) drug therapy; Z68.27 Body mass index [BMI] 27.0-27.9, adult; Z87.891 Personal history of nicotine dependence
CPT/HCPCS: 0241U; 36415; 80048; 80053; 80076; 81001; 85025; 85027; 85379; 86140; 94762; 96365; 96375; 99285-25; A9270-GY; J1100; J1650; J7050; J8540

== ENCOUNTER 2021-09-18 10:04 | Emergency (ER) | payer BC ==
[2021-09-18 10:33] VITALS: BP 117/68; PULSE 97
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
== END 2021-09-18 10:56 | disposition home or self-care (01) ==
LOC: JP.ED 10:04
DX: B02.9 Zoster without complications (principal); E78.00 Pure hypercholesterolemia, unspecified; I10 Essential (primary) hypertension; E11.9 Type 2 diabetes mellitus without complications; K21.9 Gastro-esophageal reflux disease without esophagitis; E66.9 Obesity, unspecified; Z68.25 Body mass index [BMI] 25.0-25.9, adult
CPT/HCPCS: 99283

== ENCOUNTER 2022-02-26 17:10 | Emergency (ER) | payer BC ==
[2022-02-26 18:29] VITALS: BP 150/85; PULSE 105
== END 2022-02-26 19:17 | disposition home or self-care (01) ==
LOC: JP.ED 17:10
DX: T54.93XA Toxic effect of unspecified corrosive substance, assault, initial encounter (principal); E78.00 Pure hypercholesterolemia, unspecified; I10 Essential (primary) hypertension; E11.9 Type 2 diabetes mellitus without complications; E66.9 Obesity, unspecified; Z68.26 Body mass index [BMI] 26.0-26.9, adult
CPT/HCPCS: 99281; 99283

== ENCOUNTER 2023-02-23 15:49 | Emergency (ER) | payer MEDICAID ==
[2023-02-23 16:04] VITALS: BP 130/78; PULSE 98
[2023-02-23] MEDS ORDERED: Doxycycline 100 MG Cap PO ONE (16:33)
== END 2023-02-23 16:57 | disposition home or self-care (01) ==
LOC: JP.ED 15:49
DX: S30.861A Insect bite (nonvenomous) of abdominal wall, initial encounter (principal); I10 Essential (primary) hypertension; E11.9 Type 2 diabetes mellitus without complications; D64.9 Anemia, unspecified; E66.9 Obesity, unspecified; Z68.27 Body mass index [BMI] 27.0-27.9, adult; Z79.899 Other long term (current) drug therapy; W57.XXXA Bitten or stung by nonvenomous insect and other nonvenomous arthropods, initial encounter
CPT/HCPCS: 99283; A9270

== ENCOUNTER 2024-01-11 17:36 | Emergency (ER) | payer MEDICAID ==
[2024-01-11 18:01] VITALS: BP 125/72; PULSE 89
[2024-01-11] MEDS ORDERED: Ketorolac 30 MG/ML SDV IM ONE (18:21)
[2024-01-11] MEDS: Ketorolac 15 MG/ML SDV IVPUSH ONE (19:38)
== END 2024-01-11 20:42 | disposition home or self-care (01) ==
LOC: JP.ED 17:36
DX: S42.292A Other displaced fracture of upper end of left humerus, initial encounter for closed fracture (principal); I10 Essential (primary) hypertension; E78.00 Pure hypercholesterolemia, unspecified; E11.9 Type 2 diabetes mellitus without complications; E66.9 Obesity, unspecified; Z90.49 Acquired absence of other specified parts of digestive tract; Z79.899 Other long term (current) drug therapy; Z68.28 Body mass index [BMI] 28.0-28.9, adult; W01.0XXA Fall on same level from slipping, tripping and stumbling without subsequent striking against object, initial encounter; Y92.481 Parking lot as the place of occurrence of the external cause
CPT/HCPCS: 73030; 96374; 99283; J1885